=== PATIENT | male | born 1950 | race Caucasian/White ===

== ENCOUNTER 2019-01-26 14:57 | Emergency (ER) | payer OTHER ==
[2019-01-26 15:45] LABS: Absolute Lymphocytes (CBC) 1.2 K/uL (0.7-4.9); Basophils % 0.6 % (0-1.3); Eosinophils % 0.4 % (0-4.4); Hematocrit 48.8 % (39.6-49.0); Lymphocytes % 18.1 % (15.3-44.8); MPV 10.6 fL (7.6-11.3); RBC Red Blood Cell Count 5.14 M/uL (4.33-5.43)
[2019-01-26 15:48] LABS: Protime INR 0.96
[2019-01-26] MEDS ORDERED: METOCLOPRAMIDE 10 MG/2mL INJ ONE (16:07)
[2019-01-26] MEDS ORDERED: DIPHENHYDRAMINE 50 MG/ML VIAL ONE (16:07)
[2019-01-26] MEDS ORDERED: NA CHLORIDE 0.9% 1,000 ML ONE (16:07)
--- NOTE | 2019-01-26 16:11 | RAD REPORT ---
EXAM DESCRIPTION: RAD - Chest Single View - 01/26/2019 4:00 pm CLINICAL HISTORY: Cough COMPARISON: July 2011 TECHNIQUE: AP portable chest image was obtained 1524 hours . FINDINGS: Lungs are clear. Heart and vasculature are normal. No measurable pleural effusion and no p neumothorax. No acute bony abnormality seen. No acute aortic findings suspected. IMPRESSION: No acute cardiopulmonary process. No significant change from comparison.
[2019-01-26 16:13] LABS: ALT/SGPT 48 U/L (12-78); AST/SGOT 22 U/L (15-37); Alkaline Phosphatase 64 U/L (45-117); BUN Blood Urea Nitrogen 18 mg/dL (7-18); Bicarbonate 27 mmol/L (21-32); Bilirubin Direct 0.1 mg/dL (0-0.2); Bilirubin Total 0.4 mg/dL (0.2-1.0); Glucose Level 143 mg/dL (74-106); Magnesium 2.3 mg/dL (1.8-2.4); NT PRO-BNP 129 pg/mL (<125); Potassium 3.6 mmol/L (3.5-5.1); Protein, Total 7.4 g/dL (6.4-8.2); Sodium Level 139 mmol/L (136-145); Troponin (Emerg Dept Use Only) < 0.02 ng/mL (0.0-0.045)
--- NOTE | 2019-01-26 16:40 | RAD REPORT ---
EXAM DESCRIPTION: CT - Head Brain Wo Cont - 01/26/2019 4:30 pm CLINICAL HISTORY: Aphasia, syncope COMPARISON: CT July 2011 TECHNIQUE: Axial 5 mm thick images of the head were obtained without IV contrast. All CT scans are performed using dose optimization technique as appropriate and may include automated exposure control or mA/KV adjustment according to patient size. FINDINGS: No intracranial hemorrhage, mass, edema or shift of mid-line structures. No acute infarcti on changes seen. No cortical edema or sulcal effacement. Atrophy changes and chronic ischemic changes are mild and similar to comparison. Ventricles are in proportion to any volume loss. Mastoid air cells and visualized portions of the paranasal sinuses are clear. No acute bony findings. IMPRESSION: Negative non-contrast CT head examination for acute finding Mild atrophy and chronic ischemic change not significantly different from comparison.
--- NOTE | 2019-01-26 17:45 | EDPHYS ---
Physician Documentation [facility] Name: Saw Wylie Age: 68 yrs Sex: Male : 1950 Arrival Date: 01/26/2019 Time: 14:59 Bed 8 Private MD: Ranjit Ornelas V ED Physician Suleman Iyer HPI: 01/26 17:45 This 68 yrs old Male presents to ER via Wheelchair with complaints of Passed ma2 Out Prior To Arrival. 17:42 The patient has experienced near-syncope, mild headache, gradual similar to prior ma2 headaches in the pastr . Onset: The symptoms/episode began/occurred gradually. Duration: This was a single episode. Associated signs and symptoms: Pertinent negatives: agitation, blurred vision, diarrhea. Current symptoms: headache, that is mild. The patient has experienced similar episodes in the past. Historical: - Allergies: 15:13 No Known Allergies; sg - PMHx: 15:13 Hypertension; sg - PSHx: 15:13 ID; sg - Immunization history:: Adult Immunizations up to date. - Social history:: Smoking status: Patient/guardian denies using tobacco, Patient/guardian denies using alcohol, street drugs, The patient lives with family. - Ebola Screening: : Patient negative for fever greater than or equal to 101.5 degrees Fahrenheit, and additional compatible Ebola Virus Disease symptoms Patient denies exposure to infectious person Patient denies travel to an Ebola-affected area in the 21 days before illness onset No symptoms or risks identified at this time. - Family history:: not pertinent. ROS: 17:42 Constitutional: Negative for fever, chills, and weight loss. ma2 17:42 All other systems are negative. Exam: 17:42 Constitutional: This is a well developed, well nourished patient who is awake, alert, ma2 and in no acute distress. Chest/axilla: Normal chest wall appearance and motion. Nontender with no deformity. No lesions are appreciated. Cardiovascular: Regular rate and rhythm with a normal S1 and S2. No gallops, murmurs, or rubs. Normal PMI, no JVD. No pulse deficits. Respiratory: Lungs have equal breath sounds bilaterally, clear to auscultation and percussion. No rales, rhonchi or wheezes noted. No increased work of breathing, no retractions or nasal flaring. Abdomen/GI: Soft, non-tender, with normal bowel sounds. No distension or tympany. No guarding or rebound. No evidence of tenderness throughout. MS/ Extremity: Pulses equal, no cyanosis. Neurovascular intact. Full, normal range of motion. Neuro: Awake and alert, GCS 15, oriented to person, place, time, and situation. Cranial nerves II-XII grossly intact. Motor strength 5/5 in all extremities. Sensory grossly intact. Cerebellar exam normal. Normal gait. Vital Signs: 15:11 BP 184 / 89; Pulse 46; Resp 17; Temp 97.9; Pulse Ox 99% on R/A; sg 15:22 BP 190 / 94; Pulse 90; Resp 18; Pulse Ox 100% on R/A; hj 16:06 BP 175 / 102; Pulse 81; Resp 18; Pulse Ox 100% on R/A; hj 16:49 BP 155 / 48; Pulse 85; Resp 18; Pulse Ox 100% on R/A; hj 17:21 BP 154 / 95; Pulse 71; Resp 18; Pulse Ox 98% on R/A; hj MDM: 15:05 Patient medically screened. ma2 17:42 Differential Diagnosis: cardiac arrhythmia, drug effect, emotional response, vasovagal ma2 episode. Data reviewed: vital signs, nurses notes. Counseling: I had a detailed discussion with the patient and/or guardian regarding: the historical points, exam findings, and any diagnostic results supporting the discharge/admit diagnosis, the presence of at least one elevated blood pressure reading (>120/80) during this emergency department visit, the need for outpatient follow up. Response to treatment: the patient's symptoms have resolved after treatment. 01/26 15:09 Order name: Basic Metabolic Panel; Complete Time: 16:53 ma2 01/26 15:09 Order name: CBC with Diff; Complete Time: 16:00 ma2 01/26 15:09 Order name: LFT's; Complete Time: 16:53 ma2 01/26 15:09 Order name: Magnesium; Complete Time: 16:53 ma2 01/26 15:09 Order name: NT PRO-BNP; Complete Time: 16:53 ma2 01/26 15:09 Order name: PT-INR; Complete Time: 16:00 ma2 01/26 15:09 Order name: Troponin (emerg Dept Use Only); Complete Time: 16:53 ma2 01/26 15:09 Order name: XRAY Chest (1 view); Complete Time: 16:53 ma2 01/26 15:09 Order name: EKG; Complete Time: 15:11 ma2 01/26 16:04 Order name: CT Head Brain wo Cont; Complete Time: 16:53 ma2 01/26 17:46 Order name: EKG; Complete Time: 17:47 01/26 15:09 Order name: Cardiac monitoring; Complete Time: 15:27 ma2 01/26 15:09 Order name: EKG - Nurse/Tech; Complete Time: 15:27 ma2 01/26 15:09 Order name: IV Saline Lock; Complete Time: 15:27 ma2 01/26 15:09 Order name: Labs collected and sent; Complete Time: 15:28 ma2 01/26 15:09 Order name: O2 Per Protocol; Complete Time: 15:28 ma2 01/26 15:09 Order name: O2 Sat Monitoring; Complete Time: 15:28 ma2 Administered Medications: 15:50 Drug: NS 0.9% 1000 ml Route: IV; Rate: 1 bolus; Site: left antecubital; hj 16:41 Follow up: IV Status: Completed infusion hj 16:41 Follow up: IV Status: Completed infusion; IV Intake: 1000ml 15:50 Drug: Reglan 20 mg Route: IVP; Site: left antecubital; hj 16:41 Follow up: Response: No adverse reaction hj 15:50 Drug: Benadryl 50 mg Route: IVP; Site: left forearm; hj 16:41 Follow up: Response: No adverse reaction Disposition: 01/26/19 17:44 Discharged to Home. Impression: Essential (primary) hypertension. - Condition is Stable. - Discharge Instructions: Hypertension. - Prescriptions for Reglan 10 mg Oral Tablet - take 1 tablet by ORAL route every 6 hours . take 30 minutes before meals and at bedtime; 100 tablet. - Medication Reconciliation Form, Thank You Letter, Antibiotic Education, Prescription Opioid Use form. - Follow up: Kulwant Rodriguez MD; When: Tomorrow; Reason: Continuance of care. Signatures: Dispatcher [facility]io Huggins RN RN Jason Landin RN RN hj Suleman Iyer MD MD ma2 Corrections: (The following items were deleted from the chart) 18:03 17:44 01/26/2019 17:44 Discharged to Home. Impression: Essential (primary) hj hypertension. Condition is Stable. Forms are Medication Reconciliation Form, Thank You Letter, Antibiotic Education, Prescription Opioid Use. Follow up: Kulwant Rodriguez; When: Tomorrow; Reason: Continuance of care. ma2
--- NOTE | 2019-01-26 17:45 | ER ---
Nurse's Notes [facility] Name: Saw Wylie Age: 68 yrs Sex: Male : 1950 Arrival Date: 01/26/2019 Time: 14:59 Bed 8 Private MD: Ranjit Ornelas V Diagnosis: Essential (primary) hypertension Presentation: 01/26 15:09 Presenting complaint: Patient states: I feel weak like im going to pass out, have been sg on clindamycin for an abscess on my buttocks, finished the antibiotics but unsure if the infection is cleared out. No pain, denies N/V/D/Fever at this time, reports feeling weak like is going to pass out. Transition of care: patient was not received from another setting of care. Onset of symptoms was January 26, 2019. Risk Assessment: Do you want to hurt yourself or someone else? Patient reports no desire to harm self or others. Initial Sepsis Screen: Does the patient meet any 2 criteria? No. Patient's initial sepsis screen is negative. Does the patient have a suspected source of infection? Yes: Skin breakdown/wound. Care prior to arrival: None. 15:09 Method Of Arrival: Wheelchair sg 15:09 Acuity: INDIGO 3 sg Triage Assessment: 15:22 General: Appears in no apparent distress. uncomfortable, Behavior is calm, cooperative, hj appropriate for age. Pain: Denies pain. Historical: - Allergies: 15:13 No Known Allergies; sg - PMHx: 15:13 Hypertension; sg - PSHx: 15:13 ID; sg - Immunization history:: Adult Immunizations up to date. - Social history:: Smoking status: Patient/guardian denies using tobacco, Patient/guardian denies using alcohol, street drugs, The patient lives with family. - Ebola Screening: : Patient negative for fever greater than or equal to 101.5 degrees Fahrenheit, and additional compatible Ebola Virus Disease symptoms Patient denies exposure to infectious person Patient denies travel to an Ebola-affected area in the 21 days before illness onset No symptoms or risks identified at this time. - Family history:: not pertinent. Screenin:21 Abuse screen: Denies threats or abuse. Denies injuries from another. Nutritional hj screening: No deficits noted. Tuberculosis screening: No symptoms or risk factors identified. Fall Risk None identified. Assessment: 15:23 General: Appears in no apparent distress. uncomfortable, Behavior is calm, cooperative, hj appropriate for age. Pain: Denies pain. Neuro: Level of Consciousness is awake, alert, obeys commands, Oriented to person, place, time, situation, Appropriate for age. Cardiovascular: Capillary refill < 3 seconds Patient's skin is warm and dry. Respiratory: Airway is patent Respiratory effort is even, unlabored, Respiratory pattern is regular, symmetrical. GI: No signs and/or symptoms were reported involving the gastrointestinal system. : No signs and/or symptoms were reported regarding the genitourinary system. EENT: No signs and/or symptoms were reported regarding the EENT system. Derm: No signs and/or symptoms reported regarding the dermatologic system. Musculoskeletal: No signs and/or symptoms reported regarding the musculoskeletal system. 16:30 Reassessment: Patient and/or family updated on plan of care and expected duration. Pain hj level reassessed. Patient is alert, oriented x 3, equal unlabored respirations, skin warm/dry/pink. awaiting results and POC;. 17:21 Reassessment: Patient and/or family updated on plan of care and expected duration. Pain hj level reassessed. Patient is alert, oriented x 3, equal unlabored respirations, skin warm/dry/pink. family in room;. Vital Signs: 15:11 BP 184 / 89; Pulse 46; Resp 17; Temp 97.9; Pulse Ox 99% on R/A; sg 15:22 BP 190 / 94; Pulse 90; Resp 18; Pulse Ox 100% on R/A; hj 16:06 BP 175 / 102; Pulse 81; Resp 18; Pulse Ox 100% on R/A; hj 16:49 BP 155 / 48; Pulse 85; Resp 18; Pulse Ox 100% on R/A; hj 17:21 BP 154 / 95; Pulse 71; Resp 18; Pulse Ox 98% on R/A; hj ED Course: 14:59 Patient arrived in ED. rg4 14:59 Ranjit Ornelas MD is Private Physician. rg4 15:05 Suleman Iyer MD is Attending Physician. ma2 15:11 Triage completed. sg 15:11 Arm band placed on. sg 15:21 Jason Landin, KANA is Primary Nurse. hj 15:22 Patient has correct armband on for positive identification. Placed in gown. Bed in low hj position. Call light in reach. Side rails up X 1. Adult w/ patient. 15:23 Initial lab(s) drawn, by me, sent to lab. Inserted saline lock: 20 gauge in left hj antecubital area, using aseptic technique. Blood collected. 15:42 EKG done, by civil cad tech. reviewed by Suleman Iyer MD. at1 16:00 XRAY Chest (1 view) In Process Unspecified. EDMS 16:30 CT Head Brain wo Cont In Process Unspecified. EDMS 16:30 CT completed. Patient tolerated procedure well. Patient moved to CT. Patient moved back in from CT. 17:44 Kulwant Rodriguez MD is Referral Physician. ma2 18:02 No provider procedures requiring assistance completed. IV discontinued, intact, hj bleeding controlled, No redness/swelling at site. Pressure dressing applied. Administered Medications: 15:50 Drug: NS 0.9% 1000 ml Route: IV; Rate: 1 bolus; Site: left antecubital; hj 16:41 Follow up: IV Status: Completed infusion hj 16:41 Follow up: IV Status: Completed infusion; IV Intake: 1000ml hj 15:50 Drug: Reglan 20 mg Route: IVP; Site: left antecubital; hj 16:41 Follow up: Response: No adverse reaction hj 15:50 Drug: Benadryl 50 mg Route: IVP; Site: left forearm; hj 16:41 Follow up: Response: No adverse reaction hj Intake: 16:41 IV: 1000ml; Total: 1000ml. Outcome: 17:44 Discharge ordered by . ma2 18:02 Discharged to home ambulatory, with family. hj 18:02 Condition: stable 18:02 Discharge instructions given to patient, family, Instructed on discharge instructions, follow up and referral plans. medication usage, Demonstrated understanding of instructions, follow-up care, medications, Prescriptions given X 1. 18:03 Patient left the ED. Signatures: Dispatcher [employer] Lucio Mcdowell, RN RN Naz Archuleta, research and development tester EKG Tat1 Jason Landin RN RN hj Garcia, Rubi rg4 Tavo Conteh Mohammad, MD MD ne2
--- NOTE | 2019-01-27 06:54 | EKG ---
Test Date: 2019-01-26 Test Time: 17:53:05 Safety Equipment Testing Specialist: BRENDA MEASUREMENT RESULTS: Intervals: Rate: 83 CT: 172 QRSD: 70 QT: 390 QTc: 458 [place]: P: 11 CT: 172 QRS: 21 T: 12 INTERPRETIVE STATEMENTS: Sinus rhythm with frequent premature ventricular complexes in a pattern of bigeminy Nonspecific T wave abnormality Abnormal ECG Compared to ECG 01/26/2019 15:12:38 Ventricular premature complex(es) now present T-wave abnormality now present Sinus arrhythmia no longer present Atrial premature complex(es) no longer present Prolonged QT interval no longer present Electronically Signed On 01-27-19 06:53:07 CDT by Ajay Miller
--- NOTE | 2019-01-27 06:55 | EKG ---
Test Date: 2019-01-26 Test Time: 15:12:38 Shot Man: BRENDA MEASUREMENT RESULTS: Intervals: Rate: 88 WI: 146 QRSD: 78 QT: 410 QTc: 496 [place]: P: 12 WI: 146 QRS: 11 T: 24 INTERPRETIVE STATEMENTS: Sinus rhythm with marked sinus arrhythmia with premature atrial complexes in a pattern of bigeminy Prolonged QT Abnormal ECG Compared to ECG 08/23/2011 23:38:44 Atrial premature complex(es) now present Prolonged QT interval now present Electronically Signed On 01-27-19 06:53:18 CDT by Ajay Miller
== END 2019-01-26 18:03 | disposition home or self-care (01) ==
LOC: ER 14:57
DX: I10 Essential (primary) hypertension (principal)
CPT/HCPCS: 93005 ×2; 85025; 80048; 36415; 83735; 85610; 80076; 84484; 83880; 70450; 71045; 99284; J2765; J7030

== ENCOUNTER 2019-06-11 19:33 | Observation (INO) | payer OTHER ==
--- OUTSIDE RECORDS SUMMARY | 2019-06-11 19:36 | XMS REPORT | Summary of Care ---
:1950 Author Organization [facility] Address [address] [place] [address] Care Team Providers Name Role Phone Robert Partida MD Primary Care Provider Reason for Visit Reason Comments Refill Request Encounter Details Date Type Department Care Team Description 03/18/2019 Refill [facility] Robert Partida MD Refill Request - [place] [address] [facility] [address] [place] [address] [place] [address] Allergies Active Allergy Reactions Severity Noted Date Comments Niacin Other - See comments 07/29/2018 "It's like you set my hair on fire" documented as of this encounter (statuses as of 03/18/2019) Medications Medication Sig Dispensed Refills Start Date End Date Status cloniDINE 0.2 mg Take 0.2 mg 0 Active tabletIndications: by mouth as Bradycardia, needed Essential (1/2tab). hypertension, Hyperlipidemia with target LDL less than 100, Palpitations cloniDINE 0.1 mg Take 1 tablet 90 tablet 1 12/15/2017 Active tablet by mouth 3 (three) times daily as needed (htn). ATORVASTATIN 20 mg TAKE 1 TABLET 30 tablet 1 06/09/2018 Active tablet BY MOUTH DAILY BENAZEPRIL 20 mg TAKE 1 TABLET 30 tablet 5 07/24/2018 Active tablet BY MOUTH DAILY paroxetine 10 mg TK 1 T PO QHS 0 08/13/2018 Active tablet metoprolol succinate Take 1 tablet 180 tablet 1 08/18/2018 Active XL 25 mg 24 hr by mouth 2 tabletIndications: (two) times Essential daily. hypertension traMADOL 50 mg Take 1 tablet 40 tablet 1 08/18/2018 Active tabletIndications: by mouth Nonintractable every 6 (six) headache, hours as unspecified needed for chronicity pattern, Pain (scale unspecified headache 4-6). type ALPRAZOLAM 0.25 mg TAKE 1 TABLET 180 tablet 0 10/07/2018 Active tabletIndications: BY MOUTH Anxiety TWICE DAILY traMADOL 50 mg Take 1 tablet 20 tablet 0 01/06/2019 Active tabletIndications: by mouth Abscess, Abscess, every 6 (six) gluteal cleft hours as needed for Pain (scale 7-10). clopidogrel 75 mg Take 1 tablet 30 tablet 6 01/18/2019 Active tablet by mouth daily. HYDRALAZINE 50 mg TAKE 1 TABLET 270 tablet 0 02/17/2019 Active tabletIndications: BY MOUTH Essential THREE TIMES hypertension DAILY ATORVASTATIN 20 mg TAKE 1 TABLET 90 tablet 0 03/18/2019 Active tablet BY MOUTH DAILY. LEVOTHYROXINE 75 mcg TAKE 1 TABLET 90 tablet 0 03/18/2019 Active tablet BY MOUTH EVERY MORNING. ATORVASTATIN 20 mg TAKE 1 TABLET 90 tablet 0 12/18/2018 Discontinued tablet BY MOUTH 9 DAILY levothyroxine 75 mcg TAKE 1 TABLET 90 tablet 0 12/18/2018 Discontinued tablet BY MOUTH 9 EVERY MORNING documented as of this encounter (statuses as of 03/18/2019) Active Problems Problem Noted Date Palpitations 03/02/2018 Essential hypertension 07/03/2015 Hyperlipidemia with target LDL less than 100 07/03/2015 Hypothyroidism 07/03/2015 Anxiety 07/03/2015 documented as of this encounter (statuses as of 03/18/2019) Social History Tobacco Use Types Packs/Day Years Used Date Never Smoker Smokeless Tobacco: Never Used Alcohol Use Drinks/Week oz/Week Comments Yes socially Sex Assigned at Date Recorded Not on file Job Start Date Occupation Industry Not on file Not on file Not on file Travel History Travel Start Travel End No recent travel history available. documented as of this encounter Last Filed Vital Signs Not on filedocumented in this encounter Plan of Treatment Health Maintenance Due Date Last Done Comments HEPATITIS C (HCV) SCREEN 1950 DTaP,Tdap,and Td Vaccines (1 - Tdap) 10/11/1970 COLONOSCOPY 10/11/2001 Zoster Recombinant Vaccine (SHINGRIX) (1 of 2) 10/11/2001 Medicare Wellness Visit 10/11/2016 PNEUMOCOCCAL VACCINES 65+ (1 of 2 - PCV13) 10/11/2016 INFLUENZA VACCINE (#1) 2019 documented as of this encounter Results Not on filedocumented in this encounter Insurance Payer Benefit Plan / Subscriber ID Effective Phone Address Type Group Dates MEDICARE MEDICARE PART A xxxxxxxxxxx 2016-Pres [phone] ent [id number] [place] [phone] FORMERLY [facility] [id number] 2016-Pres [employer] ent documented as of this encounter
--- OUTSIDE RECORDS SUMMARY | 2019-06-11 19:36 | XMS REPORT ---
:1950 Author Organization [facility] Address [address] [place] [address] Dr. Ramirez [address] [place] [id number] Care Team Providers Name Role Phone Unavailable Unavailable Unavailable Problems This patient has no known problems. Allergies, Adverse Reactions, Alerts This patient has no known allergies or adverse reactions. Medications This patient has no known medications.
--- NOTE | 2019-06-11 20:03 | RAD REPORT ---
EXAM DESCRIPTION: [place] Single View06/11/2019 7:56 pm CLINICAL HISTORY: cva COMPARISON: January 2019 FINDINGS: The lungs appear clear of acute infiltrate. The heart is normal size IMPRESSION: No acute abnormalities displayed
[2019-06-11 20:07] LABS: Basophils % 0.8 % (0-1.3); Hematocrit 49.3 % (39.6-49.0); MPV 9.6 fL (7.6-11.3); RBC Red Blood Cell Count 5.18 M/uL (4.33-5.43)
[2019-06-11 20:08] LABS: Protime INR 1.26
--- NOTE | 2019-06-11 20:09 | RAD REPORT ---
EXAM DESCRIPTION: CT - Ct Stroke Brain Wo Cont - 06/11/2019 8:02 pm CLINICAL HISTORY: tia COMPARISON: January, TECHNIQUE: Computed axial tomography of the head was obtained. All CT scans are performed using dose optimization technique as appropriate and may include automated exposure control or mA/KV adjustment according to patient size. FINDINGS: An intracranial bleed is not seen . The ventricles are normal in caliber. No extra-axial fluid collection is noted. Mild low-density within periventricular, deep and subcortical white matter likely ischemic changes s econdary to small vessel disease Fluid within the sinuses/ mastoids is not seen. IMPRESSION: No acute intracranial abnormality is seen. If patient's symptoms persist MRI of the bra in would be recommended. Dr Marx of the emergency room was notified at 8:03 p.m. June 11, 2019
[2019-06-11 20:21] LABS: CKMB Creatine Kinase MB 2.2 ng/mL (0.3-3.6); Potassium 3.6 mmol/L (3.5-5.1)
--- NOTE | 2019-06-11 21:21 | ER ---
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 Reports he took his BP and it was 220/120 and he was concerned because he had a stroke in 2010 with the same symptoms. VAN negative. Transition of care: patient was not received from another setting of care. No acute neurological deficit is noted. Pre-hospital glucose is not applicable to this patient. Onset of symptoms was June 11, 2019 at 18:30. Initial Sepsis Screen: Does the patient meet any 2 criteria? No. Patient's initial sepsis screen is negative. Does the patient have a suspected source of infection? No. Patient's initial sepsis screen is negative. Care prior to arrival: None. 19:38 Method Of Arrival: Wheelchair aa1 19:38 Acuity: INDIGO 2 aa1 20:18 Risk Assessment: Do you want to hurt yourself or someone else? Patient reports no ak1 desire to harm self or others. Triage Assessment: 19:38 The onset of the patients symptoms was June 11, 2019 at 18:30. General: Appears in aa1 no apparent distress. comfortable, Behavior is calm, cooperative, appropriate for age. Pain: Denies pain. Neuro: Level of Consciousness is awake, alert, obeys commands, Oriented to person, place, time, situation, Construction Technology Instructor are equal bilaterally Moves all extremities. Full function Speech is normal, Facial symmetry appears normal. 20:16 Neuro: Reports dizziness, headache about 1 hours SALES AND [employer]PERATIONS TRAINEE. ak1 Stroke Activation: Symptom onset < 3 hours Physician: Stroke Attending; Name: n/a; Notified At: ; Arrived At: Physician: Chief Stroke Resident; Name: n/a; Notified At: ; Arrived At: Physician: Stroke Resident; Name: n/a; Notified At: ; Arrived At: Physician: ED Attending; Name: Araseli; Notified At: 19:52; Arrived At: 19:42 Physician: ED Resident; Name: n/a; Notified At: ; Arrived At: Historical: - Allergies: 20:18 No Known Allergies; aa1 - Home Meds: 20:18 levothyroxine 75 mcg tab 1 tab once daily [Active]; clonidine HCl 0.1 mg Oral tab 0.5 aa1 tab 3 times per day [Active]; hydrochlorothiazide 12.5 mg Oral tab as needed [Active]; hydralazine 25 mg Oral tab three times a day [Active]; gabapentin 100 mg oral cap daily [Active]; benazepril 40 mg oral tab 1 tab once daily [Active]; sotalol 80 mg Oral tab 0.5 tab 2 times per day [Active]; Xarelto 20 mg oral tab 1 tab once daily [Active]; rosuvastatin 5 mg oral tab 1 tab once daily [Active]; aspirin 81 mg Oral TbEC 1 tab once daily [Active]; alprazolam 0.25 mg Oral tab 1 tab nightly [Active]; - PMHx: 20:18 Hypertension; CVA; Atrial Fib; High Cholesterol; Hypothyroidism; aa1 - PSHx: 20:18 None; aa1 - Immunization history:: Flu vaccine is not up to date. Patient has never been vaccinated. - Social history:: Smoking status: Patient/guardian denies using tobacco, never smoked. - Ebola Screening: : No symptoms or risks identified at this time. Screenin:55 The patient has not been NPO before screening. The patient is alert, able to follow ak1 commands. The patient does not exhibit slurred or garbled speech The patient is not exhibiting difficulty speaking. The patient does not exhibit difficulty understanding words. The patient is able to swallow own secretions with no drooling or need for suction. Patient tolerated one teaspoon of water. No drooling, immediate coughing, gurgling, or clearing of the throat was noted. The patient tolerated 90mL of water. No drooling, immediate coughing, gurgling, or clearing of the throat was noted. The patient passed the bedside swallow screening. Oral medications may be given as ordered. Contact Physician for further diet orders. 20:16 Abuse screen: Denies threats or abuse. Denies injuries from another. Nutritional ak1 screening: No deficits noted. Tuberculosis screening: No symptoms or risk factors identified. Fall Risk None identified. Gait- Normal/Bed Rest/Wheelchair (0 pts). Assessment: 19:55 The patient has not been NPO before screening. pt was eating dinner when he had a spike ak1 in blood pressure and headache at home The patient is alert, and able to follow commands. The patient does not exhibit slurred or garbled speech. The patient is not exhibiting difficulty speaking. The patient does not exhibit difficulty understanding words. The patient is able to swallow own secretions with no drooling or need for suction. Patient tolerated one teaspoon of water. No drooling, immediate coughing, gurgling, or clearing of the throat was noted. The patient tolerated 90mL of water. No drooling, immediate coughing, gurgling, or clearing of the throat was noted. The patient passed the bedside swallow screening. Oral medications may be given as ordered. Contact Physician for further diet orders. Provider notified of bedside swallow screening results: Huber Marx MD. 19:55 General: Appears in no apparent distress. comfortable, Behavior is calm, cooperative. ak1 19:55 Neuro: Level of Consciousness is awake, alert, obeys commands, Oriented to person, ak1 place, time, situation, Construction Technology Instructor are equal bilaterally Moves all extremities. Full function Gait is steady, Speech is normal, Facial symmetry appears normal. Cardiovascular: Heart tones S1 S2 present Rhythm is sinus rhythm. Respiratory: Airway is patent Respiratory effort is even, unlabored, Respiratory pattern is regular. GI: No signs and/or symptoms were reported involving the gastrointestinal system. : No signs and/or symptoms were reported regarding the genitourinary system. EENT: No signs and/or symptoms were reported regarding the EENT system. Derm: No signs and/or symptoms reported regarding the dermatologic system. Musculoskeletal: No signs and/or symptoms reported regarding the musculoskeletal system. pt ambulated from wheelchair to ER stretcher. 19:55 T-PA (Activase) Screening: Contraindications: Is the patient on Aspirin, Heparin, or ak1 Warfarin: Yes. 20:17 VAN Scoring: Arm Drift: Patients demonstrates NO arm weakness. Patient is VAN Negative. ak1 21:43 Reassessment: Reassessment: No changes from previously documented assessment. Patient ak1 and/or family updated on plan of care and expected duration. Pain level reassessed. Patient is alert, oriented x 3, equal unlabored respirations, skin warm/dry/pink. pt informed of wait for Dr. Paredes's occupational therapy assistant physician Dr. Powell to contact Dr. Marx about admission. 22:30 Reassessment: pt SisterTatiana and brother in law, Chris Arteaga can be reached at ak1 [phone]. 22:36 Reassessment: hospitalist at bedside. ak1 Vital Signs: 19:40 BP 194 / 99; Pulse 72; Resp 18; Temp 98.6(O); Pulse Ox 99% on R/A; Weight 82.55 kg (R); aa1 Height 5 ft. 5 in. (165.10 cm) (R); Pain 0/10; 20:07 BP 164 / 85; Pulse 61; Resp 18; Pulse Ox 98% on R/A; ak1 20:33 BP 137 / 81; Pulse 58; Resp 15; Pulse Ox 97% on R/A; ak1 21:44 BP 137 / 78; Pulse 54; Resp 16; Pulse Ox 98% on R/A; Pain 0/10; ak1 23:09 BP 142 / 86; Pulse 48; Resp 12; Temp 98.4; Pulse Ox 97% on R/A; ak1 19:40 Body Mass Index 30.29 (82.55 kg, 165.10 cm) aa1 NIH Stroke Scale Scores: 20:17 NIHSS Score: 0 ak1 ED Course: 19:36 Patient arrived in ED. es 19:37 Ranjit Ornelas MD is Private Physician. es 19:37 Arm band placed on right wrist. 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 19:43 Huber Marx MD is Attending Physician. tw4 19:52 Yenifer Clemens, KANA is Primary Nurse. ak1 19:52 Inserted saline lock: 18 gauge in left antecubital area, using aseptic technique. ak1 ,using aseptic technique. placed by Nguyễn Desir Blood collected. 19:55 Stroke CXR 1 View In Process Unspecified. EDMS 19:55 Patient has correct armband on for positive identification. Placed in gown. Bed in low ak1 position. Call light in reach. Side rails up X2. Adult w/ patient. retail sales consultant on. Pulse ox on. NIBP on. 20:04 CT Stroke Brain w/o Contrast In Process Unspecified. EDMS 20:05 Triage completed. aa1 21:19 Gregorio Carbajal is Hospitalizing Provider. tw4 23:06 No provider procedures requiring assistance completed. Patient admitted, IV remains in ak1 place. Administered Medications: No medications were administered Point of Care Testing: Blood Glucose: 19:40 Blood Glucose: 172 mg/dL; aa1 Ranges: Outcome: 21:20 Decision to Hospitalize by Provider. tw4 23:07 Admitted to Med/surg accompanied by tech, via wheelchair, room 204, with chart. ak1 23:07 Condition: stable 23:07 Instructed on the need for admit. 23:30 Patient left the ED. ak1 NIH Stroke Scale - NIH Stroke Score Date: 06/11/2019 Time: 20:17 Total Score = 0 1a. Level of Consciousness (LOC) - 0(Alert) 1b. Level of Consciousness (LOC) (Year \T\ Age) - 0(Both) 1c. LOC Commands (Open \T\ Closes Eyes/Lead Ios Developer) - 0(Both) 2. Best Gaze (Lateral Gaze Paresis) - 0(Normal) 3. Visual Field Loss - 0(No visual loss) 4. Facial Palsy - 0(Normal) 5a. Left Arm: Motor (10-second hold) - 0(No drift) 5b. Right Arm: Motor (10-second hold) - 0(No drift) 6a. Left Leg: Motor (5-second hold - always test supine) - 0(No drift) 6b. Right Leg: Motor (5-second hold - always test supine) - 0(No drift) 7. Limb Ataxia (finger/nose \T\ heel/rice - test with eyes open) - 0(Absent) 8. Sensory Loss (pinprick arms/legs/face) - 0(Normal) 9. Best Language: Aphasia (description/naming/reading) - 0(No aphasia) 10. Dysarthria (speech clarity - read or repeat words) - 0(Normal) 11. Extinction and Inattention (visual/tactile/auditory/spatial/personal) - 0(No abnormality) Initials: ak1 Signatures: Dispatcher [employer] EDGricelda Reyes RN RN aa1 Hafsa Gabriel Amber RN RN ak1 Huber Marx MD MD tw4 Corrections: (The following items were deleted from the chart) 20:09 20:07 The patient has not been NPO before screening. pt was eating dinner when ak1 he had a spike in blood pressure and headache at home The patient is alert, and able to follow commands. The patient does not exhibit slurred or garbled speech. The patient is not exhibiting difficulty speaking. The patient does not exhibit difficulty understanding words. The patient is able to swallow own secretions with no drooling or need for suction. Patient tolerated one teaspoon of water. No drooling, immediate coughing, gurgling, or clearing of the throat was noted. The patient tolerated 90mL of water. No drooling, immediate coughing, gurgling, or clearing of the throat was noted. The patient passed the bedside swallow screening. Oral medications may be given as ordered. Contact Physician for further diet orders. Provider notified of bedside swallow screening results: Huber Marx MD ak1
--- NOTE | 2019-06-11 21:21 | EDPHYS ---
Physician Documentation [facility] Name: Saw Wylie Age: 68 yrs Sex: Male : 1950 Arrival Date: 06/11/2019 Time: 19:36 Bed 4 Private MD: Ranjit Ornelas V ED Physician Huber Marx HPI: 06/12 06:51 This 68 yrs old Male presents to ER via Wheelchair with complaints of S/S of tw4 Possible Stroke. 06:51 The patient's problem is reported as dysphasia, expressive aphasia. Onset: The tw4 symptoms/episode began/occurred today. Onset: The symptoms/episode began/occurred. Duration: This was a single incident. Context: the episode(s) was witnessed, by family, brother, symptoms became apparent occurred at home. The symptoms are alleviated by nothing. The symptoms are aggravated by nothing. Severity of symptoms: At their worst the symptoms were moderate in the emergency department the symptoms have improved. Patient's baseline: Neuro: alert and fully oriented, Motor: no deficits, Ambulation: walks without assistance, Speech: normal. The patient has experienced a previous episode, and the symptoms today are exactly the same. Historical: - Allergies: 06/11 20:18 No Known Allergies; aa1 - Home Meds: 20:18 levothyroxine 75 mcg tab 1 tab once daily [Active]; clonidine HCl 0.1 mg Oral tab 0.5 aa1 tab 3 times per day [Active]; hydrochlorothiazide 12.5 mg Oral tab as needed [Active]; hydralazine 25 mg Oral tab three times a day [Active]; gabapentin 100 mg oral cap daily [Active]; benazepril 40 mg oral tab 1 tab once daily [Active]; sotalol 80 mg Oral tab 0.5 tab 2 times per day [Active]; Xarelto 20 mg oral tab 1 tab once daily [Active]; rosuvastatin 5 mg oral tab 1 tab once daily [Active]; aspirin 81 mg Oral TbEC 1 tab once daily [Active]; alprazolam 0.25 mg Oral tab 1 tab nightly [Active]; - PMHx: 20:18 Hypertension; CVA; Atrial Fib; High Cholesterol; Hypothyroidism; aa1 - PSHx: 20:18 None; aa1 - Immunization history:: Flu vaccine is not up to date. Patient has never been vaccinated. - Social history:: Smoking status: Patient/guardian denies using tobacco, never smoked. - Ebola Screening: : No symptoms or risks identified at this time. ROS: 06/12 06:51 Constitutional: Negative for fever, chills, and weight loss, Eyes: Negative for injury, tw4 pain, redness, and discharge, Cardiovascular: Negative for chest pain, palpitations, and edema, Respiratory: Negative for shortness of breath, cough, wheezing, and pleuritic chest pain, Abdomen/GI: Negative for abdominal pain, nausea, vomiting, diarrhea, and constipation, Back: Negative for injury and pain, MS/Extremity: Negative for injury and deformity. Neuro: Positive for speech changes. Exam: 06:51 Radiologist reports: negative tw4 06:51 Constitutional: This is a well developed, well nourished patient who is awake, alert, and in no acute distress. Head/Face: Normocephalic, atraumatic. Chest/axilla: Normal chest wall appearance and motion. Nontender with no deformity. No lesions are appreciated. Cardiovascular: Regular rate and rhythm with a normal S1 and S2. No gallops, murmurs, or rubs. Normal PMI, no JVD. No pulse deficits. Respiratory: Lungs have equal breath sounds bilaterally, clear to auscultation and percussion. No rales, rhonchi or wheezes noted. No increased work of breathing, no retractions or nasal flaring. Abdomen/GI: Soft, non-tender, with normal bowel sounds. No distension or tympany. No guarding or rebound. No evidence of tenderness throughout. Back: No spinal tenderness. No costovertebral tenderness. Full range of motion. MS/ Extremity: Pulses equal, no cyanosis. Neurovascular intact. Full, normal range of motion. Neuro: Awake and alert, GCS 15, oriented to person, place, time, and situation. Cranial nerves II-XII grossly intact. Motor strength 5/5 in all extremities. Sensory grossly intact. Cerebellar exam normal. Normal gait. Vital Signs: 06/11 19:40 BP 194 / 99; Pulse 72; Resp 18; Temp 98.6(O); Pulse Ox 99% on R/A; Weight 82.55 kg (R); aa1 Height 5 ft. 5 in. (165.10 cm) (R); Pain 0/10; 20:07 BP 164 / 85; Pulse 61; Resp 18; Pulse Ox 98% on R/A; ak1 20:33 BP 137 / 81; Pulse 58; Resp 15; Pulse Ox 97% on R/A; ak1 21:44 BP 137 / 78; Pulse 54; Resp 16; Pulse Ox 98% on R/A; Pain 0/10; ak1 23:09 BP 142 / 86; Pulse 48; Resp 12; Temp 98.4; Pulse Ox 97% on R/A; ak1 19:40 Body Mass Index 30.29 (82.55 kg, 165.10 cm) aa1 NIH Stroke Scale Scores: 20:17 NIHSS Score: 0 ak1 MDM: 19:43 Patient medically screened. tw4 06/12 06:51 Differential diagnosis: CVA, TIA, Dementia, paralysis, metabolic disorder, drug tw4 effects. Data reviewed: vital signs, nurses notes. Data interpreted: Pulse oximetry: Interpretation: normal. Test interpretation: by ED physician or midlevel provider: ECG. Counseling: I had a detailed discussion with the patient and/or guardian regarding: the historical points, exam findings, and any diagnostic results supporting the discharge/admit diagnosis, lab results, radiology results. Physician consultation: Gregorio Carbajal regarding admission, patient's condition, and will see patient in ED. 06/11 19:43 Order name: Ckmb; Complete Time: 21:16 tw4 06/11 21:16 Interpretation: Within normal limits: CKMB 2.2. tw4 06/11 19:43 Order name: CPK; Complete Time: 21:16 tw4 06/11 21:16 Interpretation: Within normal limits: CPK 89. tw06/11 19:43 Order name: Basic Metabolic Panel; Complete Time: 21:16 tw4 06/11 21:17 Interpretation: Normal except: GLUC 176; GFR 59. tw06/11 19:43 Order name: CBC with Diff; Complete Time: 21:16 tw4 06/11 21:17 Interpretation: Normal except: HCT 49.3. tw4 06/11 19:43 Order name: Protime (+inr); Complete Time: 21:16 tw4 06/11 21:17 Interpretation: Within normal limits: PT 14.7. tw4 06/11 19:43 Order name: Ptt, Activated; Complete Time: 21:16 tw4 06/11 21:17 Interpretation: Normal except: PTT 40.2. tw4 06/11 19:43 Order name: Call for Old Records tw 06/11 19:43 Order name: CT Stroke Brain w/o Contrast; Complete Time: 21:16 tw4 06/11 21:16 Interpretation: No acute disease. tw 06/11 19:43 Order name: Stroke CXR 1 View; Complete Time: 21:16 tw4 06/11 21:16 Interpretation: No acute disease. tw4 06/11 19:43 Order name: EKG; Complete Time: 19:44 tw4 06/11 19:43 Order name: Accucheck; Complete Time: 19:52 tw 06/11 19:43 Order name: Cardiac monitoring; Complete Time: 19:52 tw4 06/11 19:43 Order name: EKG - Nurse/Tech; Complete Time: 19:52 [facility] 06/11 19:59 Order name: Glucose, Ancillary Testing; Complete Time: 21:16 EDVT 06/11 21:16 Interpretation: Normal except: GLUC,ANCIL 172. 4 06/11 19:43 Order name: IV Saline Lock; Complete Time: 19:52 4 06/11 19:43 Order name: Labs collected and sent; Complete Time: 19:52 tw4 06/11 19:43 Order name: NPO; Complete Time: 19:52 [facility] 06/11 19:43 Order name: O2 Per Protocol; Complete Time: 19:52 [facility] 06/11 19:43 Order name: O2 Sat Monitoring; Complete Time: 19:52 [facility] 06/11 19:43 Order name: Stroke Swallow Screen; Complete Time: 19:55 tw4 Administered Medications: No medications were administered Point of Care Testing: Blood Glucose: 06/11 19:40 Blood Glucose: 172 mg/dL; aa1 Ranges: Critical Glucose Levels:Adult <50 mg/dl or >400 mg/dl <40 mg/dl or >180 mg/dl Disposition: 06/11/19 21:20 Hospitalization ordered by Gregorio Carbajal for Observation. Preliminary diagnosis is transiet ischemic attack. - Bed requested for Telemetry/MedSurg (observation). - Status is Observation. ak1 - Condition is Stable. - Problem is new. - Symptoms have improved. UTI on Admission? No NIH Stroke Scale - NIH Stroke Score Date: 06/11/2019 Time: 20:17 Total Score = 0 1a. Level of Consciousness (LOC) - 0(Alert) 1b. Level of Consciousness (LOC) (Year \T\ Age) - 0(Both) 1c. LOC Commands (Open \T\ Closes Eyes/Ui Ux Developer) - 0(Both) 2. Best Gaze (Lateral Gaze Paresis) - 0(Normal) 3. Visual Field Loss - 0(No visual loss) 4. Facial Palsy - 0(Normal) 5a. Left Arm: Motor (10-second hold) - 0(No drift) 5b. Right Arm: Motor (10-second hold) - 0(No drift) 6a. Left Leg: Motor (5-second hold - always test supine) - 0(No drift) 6b. Right Leg: Motor (5-second hold - always test supine) - 0(No drift) 7. Limb Ataxia (finger/nose \T\ heel/rice - test with eyes open) - 0(Absent) 8. Sensory Loss (pinprick arms/legs/face) - 0(Normal) 9. Best Language: Aphasia (description/naming/reading) - 0(No aphasia) 10. Dysarthria (speech clarity - read or repeat words) - 0(Normal) 11. Extinction and Inattention (visual/tactile/auditory/spatial/personal) - 0(No abnormality) Initials: ak1 Signatures: Dispatcher [employer] EDGricelda Reyes RN RN aa1 Yenifer Clemens RN RN ak1 Jenifer Argueta RN RN cg Wadley, Terrence, MD MD tw4 Corrections: (The following items were deleted from the chart) 23:04 21:20 Hospitalization Ordered by Gregorio Carbajal for Observation. Preliminary cg diagnosis is transiet ischemic attack. Bed requested for Telemetry/MedSurg (observation). Status is Observation. Condition is Stable. Problem is new. Symptoms have improved. UTI on Admission? No. tw4 23:30 23:04 06/11/2019 21:20 Hospitalization Ordered by Gregorio Carbajal for ak1 Observation. Preliminary diagnosis is transiet ischemic attack. Bed requested for Telemetry/MedSurg (observation). Status is Observation. Condition is Stable. Problem is new. Symptoms have improved. UTI on Admission? No. cg
--- NOTE | 2019-06-11 22:48 | P.HP ---
Certification for Inpatient Patient admitted to: Observation With expected LOS: <2 Midnights Practitioner: I am a practitioner with admitting privileges, knowledge of patient current condition, hospital course, and medical plan of care. Services: Services provided to patient in accordance with Admission requirements found in Title 42 Section 412.3 of the Code of Federal Regulations Patient History Date of Service: 06/12/19 Reason for admission: Dizziness History of Present Illness: 68-year-old gentleman with a history of atrial fibrillation on Xarelto, hypertension, history of CVA in the past presented to the emergency department with a complaint of transient vertigo, nausea and transient inability to speak. Patient stated he took his blood pressure and systolic was as high as 220. He was concerned for another stroke. He then took a dose of clonidine, hydralazine and benazepril and drove himself to the emergency department to be evaluated. His systolic blood pressure was [address] head is negative for any acute intercranial changes. His symptoms resolved prior to arrival to the ED. He seems to associate these symptoms with severely elevated blood pressure. He was also complaining of intermittent chest. EKG in the ED demonstrated atrial fibrillation, no ischemic changes. Patient is placed under observation for further TIA and chest pain workup. Allergies metoclopramide [From Reglan] Adverse Reaction (Severe, Verified 06/12/19 00:15) facial numbness Home Medications: ALPRAZolam [Xanax*] 0.25 mg PO BEDTIME 06/11/19 Benazepril HCl 40 mg PO BEDTIME 06/11/19 Gabapentin 100 mg PO BEDTIME 06/11/19 Hydralazine HCl 50 mg PO TID 06/11/19 Levothyroxine Sodium 75 mcg PO DAILY 06/11/19 Rivaroxaban [Xarelto] 20 mg PO DAILY 06/11/19 cloNIDine HCl [Clonidine HCl] 0.2 mg PO TID 06/11/19 Aspirin [Aspirin EC 81 MG] 81 mg PO DAILY 06/12/19 Rosuvastatin Calcium 5 mg PO BEDTIME 06/12/19 Sotalol HCl [Betapace*] 80 mg PO BID 06/12/19 - Past Medical/Surgical History -: Hypertension -: History of CVA -: Atrial fibrillation -: None - Family History Family History: Reviewed- Non-Contributory - Family History Mother -: Hypertension, Cancer Father -: Heart disease, Hypertension Brother -: Cancer - Social History Smoking Status: Never smoker Alcohol use: No CD- Drugs: No Review of Systems Other: General: No fever, no malaise, no unintentional weight loss. Eyes: No eye discharge, Respiratory: No cough, no shortness of breath. CVS: No chest pain, no palpitation, no lightheadedness. GI: No abdominal pain, no nausea no vomit, no constipation, no diarrhea. Genitourinary: No dysuria, no urinary frequency, no incontinence, no hematuria. Musculoskeletal: No joint pains, or joint swelling, no gait instability. Neurology: No headache, no asymmetric, weakness, no problem with swallowing. Except as documented, all other systems reviewed and negative. Physical Examination - Physical Exam General: Alert, In no apparent distress, Oriented x3 HEENT: Atraumatic, Normocephalic, PERRLA, Mucous membr. moist/pink, EOMI, Sclerae nonicteric Neck: Supple, JVD not distended, No Thyromegaly Respiratory: Clear to auscultation bilaterally, Normal air movement Cardiovascular: No edema, Normal pulses, Regular rate/rhythm, Normal S1 S2 Capillary refill: <2 Seconds Gastrointestinal: Normal bowel sounds, Soft and benign, No tenderness Musculoskeletal: No swelling, No erythema Integumentary: No rashes, No erythema Neurological: Normal speech, Normal strength at 5/5 x4 extr, Normal tone, Cranial nerves 3-12 intact - Studies Laboratory Data (last 24 hrs) 06/11/19 19:50: PT 14.7 H, INR 1.26, APTT 40.2 H 06/11/19 19:50: WBC 6.6, Hgb 16.7, Hct 49.3 H, Plt Count 154 06/11/19 19:50: Sodium 139, Potassium 3.6, BUN 16, Creatinine 1.23, Glucose 176 H Assessment and Plan - Problems (Diagnosis) (1) Malignant hypertension Current Visit: Yes Status: Acute (2) TIA (transient ischemic attack) Current Visit: Yes Status: Acute (3) Paroxysmal atrial fibrillation Current Visit: Yes Status: Acute - Plan Place under observation cuprous chloride helper Trend troponin x3 Aspirin, Lipitor Check lipid profile Continue Xarelto Obtain echocardiogram and carotid Doppler Aggressive blood pressure control. Continue home antihypertensives. Hydralazine p.r.n. for BP spikes. Target SBP 140 to 160. - Advance Directives Does patient have a Living Will: No Does patient have a Durable POA for Healthcare: No
[2019-06-11] MEDS ORDERED: ONDANSETRON 4 MG/2 ML VIAL IV PRN (23:49)
[2019-06-11] MEDS ORDERED: HYDRALAZINE HCL 20 MG/ML VIAL IV PRN (23:49)
[2019-06-12 00:15] VITALS: BMI 30.2
[2019-06-12 00:31] VITALS: O2SAT 99
[2019-06-12 01:07] LABS: Troponin I < 0.02 ng/mL (0.0-0.045)
[2019-06-12 06:33] LABS: Absolute Lymphocytes (CBC) 2.1 K/uL (0.7-4.9); Basophils % 0.6 % (0-1.3); Hematocrit 44.2 % (39.6-49.0); Lymphocytes % 30.2 % (15.3-44.8); RBC Red Blood Cell Count 4.72 M/uL (4.33-5.43)
[2019-06-12 06:37] LABS: BUN Blood Urea Nitrogen 14 mg/dL (7-18); Bicarbonate 31 mmol/L (21-32); Glucose Level 108 mg/dL (74-106); HDL Cholesterol 30 mg/dL (40-60); LDL Cholesterol, Calculated 133 (<130); Magnesium 2.3 mg/dL (1.8-2.4); Phosphorus 2.7 mg/dL (2.5-4.9); Sodium Level 143 mmol/L (136-145); Troponin I < 0.02 ng/mL (0.0-0.045)
--- NOTE | 2019-06-12 08:09 | EKG ---
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
[2019-06-12] MEDS ORDERED: ASPIRIN EC 81 MG TAB PO SCH (09:00)
[2019-06-12 09:23] VITALS: BP 152/83; TEMP 97.8
--- NOTE | 2019-06-12 11:04 | RAD REPORT ---
EXAM DESCRIPTION: RAD - Chest Pa And Lat (2 Views) - 06/12/2019 6:43 am CLINICAL HISTORY: Stroke Chest pain. COMPARISON: Chest Single View dated 06/11/2019; Chest Single View dated 01/26/2019; CHEST SINGLE VIEW dated 08/24/2011; CHEST SINGLE VIEW dated 10/22/2010 FINDINGS: The lungs are clear. The heart is normal in size. No displaced fractures. IMPRESSION: No acute or concerning finding suspected.
--- NOTE | 2019-06-12 12:54 | P.SSS ---
Patient History Date of Service: 06/12/19 Reason for admission: Dizziness History of Present Illness: MR. TORRES IS ONE WITH FLUCUTATIG HTN. HE HAS GONE THROUGH ABOUT 15 HTN MEDS WITH MOST OF THEM HE IS INTOLERANT TO . HE HAS HAD FULL MALDONADO WITH 24 HOUR URINE COLLECTION, RENAL ARTERY EVAL AND STRESS TEST THAT WAS NEGATIVE BY DR. OLIVERA 3 MONTHS AGO. HE COMES WITH HTN TO 180 LATER RAISED TO 210 SYSTOLIC. HE HAD SOME CHEST PAIN HE SAID AND HEADACHES. HE GOT DIZZ WITH IT ALSO. HE IS BACK TO NORMAL NOW. Allergies metoclopramide [From Reglan] Adverse Reaction (Severe, Verified 06/12/19 00:15) facial numbness Home Medications: ALPRAZolam [Xanax*] 0.25 mg PO BEDTIME 06/11/19 Benazepril HCl 40 mg PO BEDTIME 06/11/19 Gabapentin 100 mg PO BEDTIME 06/11/19 Hydralazine HCl 50 mg PO TID 06/11/19 Levothyroxine Sodium 75 mcg PO DAILY 06/11/19 Rivaroxaban [Xarelto] 20 mg PO DAILY 06/11/19 cloNIDine HCl [Clonidine HCl] 0.2 mg PO TID 06/11/19 Aspirin [Aspirin EC 81 MG] 81 mg PO DAILY 06/12/19 Rosuvastatin Calcium 5 mg PO BEDTIME 06/12/19 Sotalol HCl [Betapace*] 80 mg PO BID 06/12/19 - Past Medical/Surgical History Has patient received pneumonia vaccine in the past: No Diabetic: No -: Hypertension -: History of CVA -: Atrial fibrillation -: None - Family History Family History: Reviewed- Non-Contributory - Family History Mother -: Hypertension, Cancer Father -: Heart disease, Hypertension Brother -: Cancer - Social History Smoking Status: Never smoker Alcohol use: No CD- Drugs: No Caffeine use: No Place of Residence: Home Review of Systems 10-point ROS is otherwise unremarkable Physical Examination - Vital Signs Temperature: 97.8 F Blood Pressure: 152/83 Pulse: 52 Respirations: 18 Pulse Ox (%): 97 - Physical Exam General: Alert, In no apparent distress HEENT: Atraumatic, PERRLA, Mucous membr. moist/pink, EOMI, Sclerae nonicteric Neck: Supple, 2+ carotid pulse no bruit, No LAD, Without JVD or thyroid abnormality Respiratory: Clear to auscultation bilaterally, Normal air movement Cardiovascular: Regular rate/rhythm, Normal S1 S2 Gastrointestinal: Normal bowel sounds, No tenderness Musculoskeletal: No tenderness Integumentary: No rashes Neurological: Normal gait, Normal speech, Normal strength at 5/5 x4 extr, Normal tone, Normal affect Lymphatics: No axilla or inguinal lymphadenopathy - Studies Laboratory Data (last 24 hrs) 06/11/19 19:50: PT 14.7 H, INR 1.26, APTT 40.2 H 06/11/19 19:50: WBC 6.6, Hgb 16.7, Hct 49.3 H, Plt Count 154 06/11/19 19:50: Sodium 139, Potassium 3.6, BUN 16, Creatinine 1.23, Glucose 176 H - Diagnosis (Problem(s)) (1) Malignant hypertension Current Visit: Yes Status: Acute Plan: HE HAS IMPROVED. HE HAS TO TAKE MINI DOSES OF MEDICATIONS FOR HIM TO TOLERATE. HE DID SO WITH HALF CLONIDINE, HALF HYDRALAZINE AND BP IS DOWN NOW TO 150. I SUSPECT HE SHOULD DO CATH AND RULE OUT CAD HE MAY HAVE BALANCED MYOVIEW AND STILL HAVE POS CAD. HE IS STABLE FOR DC. I WILL WORK WITH MEDS FOR CONTROL. I MAY HAVE TO GET HIM EDARBI IF HE IS ABLE TO TOLERATE. - Disposition Disposition: ROUTINE DISCHARGE Condition: FAIR
[2019-06-12] MEDS ORDERED: HOME MED 1 EA UNK (Hydralazine Hcl [Hydralazine Hcl] 50 MG) PO SCH (14:00)
[2019-06-12] MEDS ORDERED: cloNIDine HCL 0.1 MG TAB PO SCH (14:00)
[2019-06-12] MEDS ORDERED: RIVAROXABAN 10 MG TABLET PO SCH (17:00)
[2019-06-12] MEDS ORDERED: BENAZEPRIL HCL 40 MG PO SCH (21:00)
[2019-06-12] MEDS ORDERED: HOME MED 1 EA UNK (Rosuvastatin Calcium [Rosuvastatin Calcium] 5 MG) PO SCH (21:00)
[2019-06-12] MEDS ORDERED: GABAPENTIN 100 MG CAP PO SCH (21:00)
[2019-06-12] MEDS ORDERED: ATORVASTATIN 20 MG TAB PO SCH (21:00)
[2019-06-12] MEDS ORDERED: SOTALOL HCL 80 MG TAB PO SCH (21:00)
[2019-06-12] MEDS ORDERED: ALPRAZOLAM 0.25 MG TABLET PO SCH (21:00)
[2019-06-13] MEDS ORDERED: ASPIRIN EC 81 MG TAB PO SCH (09:00)
[2019-06-13] MEDS ORDERED: RIVAROXABAN 20 MG TABLET PO SCH (09:00)
[2019-06-13] MEDS ORDERED: LEVOTHYROXINE SOD 0.075 MG TAB PO SCH (09:00)
== END 2019-06-12 14:15 | disposition home or self-care (01) ==
LOC: ER 19:33 → 2ND 23:14
PROVIDERS: ADMIT Internal Medicine; ATTEND Internal Medicine
DX: I10 Essential (primary) hypertension (principal); I48.91 Unspecified atrial fibrillation; Z79.82 Long term (current) use of aspirin; Z86.73 Personal history of transient ischemic attack (TIA), and cerebral infarction without residual deficits; Z79.01 Long term (current) use of anticoagulants
CPT/HCPCS: 36415; 70450; 71045; 71046; 80048; 80061; 82550; 82553; 82947; 83735; 84100; 84439; 84443; 84484; 85025; 85610; 85730; 93005; 93880; 94760; 97116; 97161; 99285; G0378; J0360

== ENCOUNTER 2019-06-21 06:56 | Day surgery (SDC) | payer OTHER ==
--- OUTSIDE RECORDS SUMMARY | 2019-06-21 06:59 | XMS REPORT ---
:1950 [facility] Address [address] [place] [address] Dr. Ramirez [address] [place] [id number] Care Team Providers Name Role Phone Unavailable Unavailable Unavailable Problems This patient has no known problems. Allergies, Adverse Reactions, Alerts This patient has no known allergies or adverse reactions. Medications This patient has no known medications.
[2019-06-21] MEDS ORDERED: LIDOCAINE 1% MPF 30 ML VIAL ONE (07:07)
[2019-06-21] MEDS ORDERED: HEPA 1000U/500MLS 2,000 UNIT/1,000 ML BAG IV ONE (07:07)
[2019-06-21] MEDS ORDERED: NA CHLORIDE 0.9% 500 ML ONE (07:09)
[2019-06-21] MEDS ORDERED: MIDAZOLAM HCL 2 MG/2 ML INJ ONE (07:29)
[2019-06-21] MEDS ORDERED: ATROPINE SULF 1 MG/10 ML SYR IV ONE (07:30)
[2019-06-21] MEDS ORDERED: FENTANYL CITR 100 MCG/2 ML ONE (07:30)
[2019-06-21] MEDS ORDERED: NA CHLORIDE 0.9% 0 ML ONE (07:30)
--- NOTE | 2019-06-21 09:12 | OP ---
Surgeon: Kulwant Rodriguez MD Mr. Wylie is 68. Family doctor is Dr. Ornelas. Procedures: Left heart catheterization with coronary angiography, bilateral selective carotid angiog jaky, abdominal angiogram with runoffs and interpretation of renal arteries, mesenteric arteries, il iac arteries and common femoral arteries. Procedure Findings: The patient has normal coronary arteries. They are left dominant but that is a normal variant. His carotid arteries are normal. There is no stenosis or ectasias or plaque. His a nima, iliac and femoral arteries are normal. Bilateral renal arteries are normal. The right kidney artery has 2 vessels, 1 is rather small. There are no renal artery stenoses. Mesenteric arteries ap pear normal. So, all normal angiography. Procedure In Detail: The patient was brought to the cardiac petroleum laboratory technician in a fasting state. He is havi ng chest pain, neurological symptoms, anxiety symptoms, very elevated blood pressure and in spite of normal noninvasive tests, we felt that Mr. Wylie had a need for an angiogram of all of these are as in order to be sure he was not suffering from stenosis causing his symptoms. He was brought to [facility] cardiac petroleum laboratory technician in a fasting state, sedated with Versed and fentanyl. Prepared and draped in usua l sterile fashion. Right femoral artery was used. 20 cc of 1% lidocaine were used to anesthetize [facility] tissues around the right femoral artery. The artery was entered using an 18-gauge needle, cannulat ed with a short J-wire and a 4-Setswana sheath was placed into the right common femoral artery. We ang iogramed the left coronary using a JL4, right coronary artery using a JR4. We cannulated both caroti d arteries selectively using a JR4. We entered the left ventricle with an angled pigtail. We took p ressures, but did not inject any dye into the left ventricle. We had several noninvasive tests for t hat, decided to reduce his dye burden by avoiding the LV-gram. We did an aortogram using 60 mL of co ntrast which visualized very nicely all of his aorta and branches and there were no stenosis there. Specifically, the kidney arteries have no stenosis. At the end of the procedure an angiogram was don e through the 4-Setswana sheath to look at the anatomy. We entered the artery, the anatomy was found t o be in good shape and we closed the arteriotomy using Angio-Seal. Complications: None. Estimated Blood Loss: 10 cc. Tobacco Sweeper: Latonya Lozano. HEATHER Voice ID: [id number] Report ID: [id number]
[2019-06-21 10:12] VITALS: TEMP 98
[2019-06-21 11:06] VITALS: BP 138/77; O2SAT 100
== END 2019-06-21 10:45 | disposition home health service (06) ==
LOC: CCL 06:56
PROVIDERS: ATTEND Internal Medicine
DX: I20.9 Angina pectoris, unspecified (principal); I10 Essential (primary) hypertension; I48.0 Paroxysmal atrial fibrillation; Z86.73 Personal history of transient ischemic attack (TIA), and cerebral infarction without residual deficits; Z79.01 Long term (current) use of anticoagulants; Z88.8 Allergy status to other drugs, medicaments and biological substances
CPT/HCPCS: 75625; 93458; 36222; C1893; C1760; G0275; J2250; J3010; J7040; 36200; J0583

== ENCOUNTER 2019-12-14 17:46 | Emergency (ER) | payer OTHER ==
--- OUTSIDE RECORDS SUMMARY | 2019-12-14 17:48 | XMS REPORT | Summary of Care ---
:1950 Author Organization [facility] Outpatient Imaging [facility] Address [facility] [place], [place] [address]- Encounter HQ Encntr_alias(FIN) [id number] Date(s): 08/04/19 - 08/04/19 [facility]patient [facility] [address], [facility] [address] [place] [address]- [phone] Discharge Disposition: Home or Self Care Attending Physician: Jason Zheng MD Referring Physician: Jason Zheng MD Vital Signs No data available for this section Problem List No data available for this section Allergies, Adverse Reactions, Alerts No data available for this section Medications No data available for this section Results No data available for this section Immunizations No data available for this section Procedures No data available for this section Social History Social History Type Response Assessment and Plan No data available for this section
--- OUTSIDE RECORDS SUMMARY | 2019-12-14 17:48 | XMS REPORT | Continuity of Care Document ---
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 Active 07/29/19 [facility] P[facility] STENOSIS, CERVICAL 20 P [place] PRASANNA Palpitations Active 03/02/20 03/18/2019 [facility] H ealth 18 Essential Active 07/03/20 03/18/2019 [facility] Heal hypertension 15 Hyperlipidemia Active 07/03/20 03/18/2019 [facility] Health with target LDL 15 less than 100 Hypothyroidism Active 07/03/20 03/18/2019 [facility] Health 15 Anxiety Active 07/03/20 03/18/2019 [facility] Heal th 15 Medications Medication Details Route Status Patient Ordering Order Source Instructions Provider Date ATORVASTATIN 20 TAKE 1 Oral Active 03/18/20 [facility] mg tablet TABLET BY [facility] MOUTH DAILY. LEVOTHYROXINE 75 TAKE 1 Oral Active 03/18/20 [facility] mcg tablet TABLET BY [facility] MOUTH EVERY MORNING. HYDRALAZINE 50 TAKE 1 Active 02/18/20 [facility] mg tablet TABLET BY [facility] MOUTH THREE TIMES DAILY clopidogrel 75 Take 1 Oral Active 01/19/20 [facility] mg tablet tablet by [facility] mouth daily. traMADOL 50 mg Take 1 Oral Active 01/07/20 [facility] tablet tablet by [facility] mouth every 6 (six) hours as needed for Pain (scale 7-10). ATORVASTATIN 20 TAKE 1 Oral No Longer 12/19/19 [facility] mg tablet TABLET BY Active [facility] MOUTH DAILY levothyroxine 75 TAKE 1 Oral No Longer 12/19/19 [facility] mcg tablet TABLET BY Active [facility] MOUTH EVERY MORNING ALPRAZOLAM 0.25 TAKE 1 Active 10/08/19 [facility] mg tablet TABLET BY [facility] MOUTH TWICE DAILY metoprolol Take 1 Oral Active 08/18/19 [facility] succinate XL 25 tablet by [facility] mg 24 hr tablet mouth 2 (two) times daily. traMADOL 50 mg Take 1 Oral Active 08/18/19 [facility] tablet tablet by [facility] mouth every 6 (six) hours as needed for Pain (scale 4-6). paroxetine 10 mg TK 1 T PO Active 08/13/19 [facility] tablet QHS [facility] BENAZEPRIL 20 mg TAKE 1 Oral Active 07/24/20 [facility] tablet TABLET BY 18 [facility] MOUTH DAILY ATORVASTATIN 20 TAKE 1 Oral Active 06/09/20 [facility] mg tablet TABLET BY 18 [facility] MOUTH DAILY cloniDINE 0.1 mg Take 1 Oral Active 12/16/19 [facility] tablet tablet by [facility] mouth 3 (three) times daily as needed (htn). cloniDINE 0.2 mg Take 0.2 Oral Active [facility] tablet mg by Health mouth as needed (1/2tab). Allergies, Adverse Reactions, Alerts Substance Category Reaction Severity Reaction Status Date Comments S ource type Reported Niacin Other - Propensity Active UTM B See to adverse 9 Healt h comments reactions Immunizations No Data Provided for This Section Results No Data Provided for This Section Pathology Reports No Data Provided for This Section Diagnostic Reports Report Value Date Source Brain wo contrast MRA PROCEDURE INFORMATION: 08/04/2019 ARNOL [facility] Exam: MR Angiogram Head Without Contrast, Arteri es Exam date and time: 08/04/2019 5:55 PM Age: 68 years old Clinical indication: New daily persistent headac he (ndph); Additional info: G44.52 new daily persistent headache (ndph)/g44. 52 new daily persistent headache (ndph) TECHNIQUE: Imaging protocol: MR angiogram head without cont rast. Exam focused on the arteries. 3D rendering: MIP and/or 3D reconstructed images were created by the technologist. COMPARISON: No relevant prior studies available. FINDINGS: Right internal carotid artery: Unremarkable. Int racranial segment is patent with no significant stenosis. No aneurysm. Right anterior cerebral artery: Unremarkable. No occlusion or significant stenosis. No aneurysm. Right middle cerebral artery: Unremarkable. No o cclusion or significant stenosis. No aneurysm. Right posterior cerebral artery: Unremarkable. N o occlusion or significant stenosis. No aneurysm. Right vertebral artery: Unremarkable. No occlusion or significant stenosis. No aneurysm. Left internal carotid artery : Unremarkable. Intracranial segment is patent with no significant stenosis. No aneurysm. Left anterior cerebral artery: Unremarkable. No occlusion or significant stenosis. No aneurysm. Left middle cerebral artery: Unremarkable. No oc clusion or significant stenosis. No aneurysm. Left posterior cerebral artery: Unremarkable. No occlusion or significant stenosis. No aneurysm. Left vertebral artery: Unremarkable. No occlusio n or significant stenosis. No aneurysm. Basilar artery: Unremarkable. No occlusion or si gnificant stenosis. No aneurysm. 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 3D rendering: MIP and/or 3D reconstructed images were created by the technologist. COMPARISON: No relevant prior studies available. FINDINGS: Right common carotid artery: Unremarkable. No st enosis. No dissection or occlusion. Right internal carotid artery: Unremarka ble extracranial segment. No stenosis. No dissection or occlusion. Right external carotid artery: Unremarkable. No stenosis. No dissection or occlusion of the origin. Right vertebral artery: Unremarkable. No stenosis. No dissection or occlusion. Left common carotid artery: Unremarkable. No lexi nosis. No dissection or occlusion. Left internal carotid artery: Unremarkable extra cranial segment. No stenosis. No dissection or occlusion. Left external carotid artery: Unremarkable. No s tenosis. No dissection or occlusion of the origin. Left vertebral artery: Unremarkable. No stenosis . No dissection or occlusion. IMPRESSION: No hemodynamically significant stenosis. COMMENT: Reference per NASCET criteria for degree of sten osis: Mild: less than 50% stenosis. Moderate: 50-69% stenosis. Severe: 70- 94% stenosis. Near occlusion: 95-99% stenosis. Phillip Munoz MD On 08/04/2019 19:05:57; VR- [id number] Spine cervical wo PROCEDURE INFORMATION: 08/04/2019 PAR[facility] contrast MRI Exam: MR Cervical Spine Without Contrast Exam date and time: 08/04/2019 6:17 PM Age: 68 years old Clinical indication: Spinal stenosis, ce rvical region; Additional info: M48.02 spinal stenosis, cervical region/m48.02 spinal s tenosis, cervical region TECHNIQUE: Imaging protocol: Multiplanar magnetic resonance images of the cervical spine without contrast. COMPARISON: NECK WO CONTRAST MRA 08/04/2019 6:00 PM FINDINGS: Vertebrae: There is no fracture or subluxation o f the vertebrae. There is an underlying short pedicle configuration of the sp inal canal. Spinal cord: There is no myelomalacia or cord ed duran. There is no cerebellar tonsillar ectopia. C2-C3: No significant disc disease. No significa nt spinal stenosis. C3-C4: At the C3-C4 disc space, there is broaden ing of the posterior longitudinal ligament and a short pedicl e configuration of spinal canal. There is hypertrophic change of un covertebral joints with minimal bilateral foraminal stenosis and central canal stenosis. C4-C5: At the C4-C5 disc space, there is a 2 mm central protrusion and hypertrophic change to left uncovertebral joint with minimal to moderate spinal stenosis and severe left foraminal stenosis. C5-C6: At the C5-C6 disc space is a 2 mm bulging annulus and left lateral spondylosis. There is severe left foraminal sten osis with hypertrophic change of uncovertebral joint and minimal to moderate s janette stenosis. C6-C7: At the C6-C7 disc space is a 2 mm right lateral bridging osteophyte and hypertrophic change of uncovertebral joint and l igamentum flavum hypertrophy with moderate spinal stenosi s. There is minimal flattening of the right ventral cord. There is severe right foraminal stenosis. C7-T1: At the C7-T1 disc space is a 2 mm left la teral protrusion partially attenuating distal lateral recess and hypertroph ic change of uncovertebral joint with minimal to moderate left foraminal st enosis. Vertebral arteries: Expected flow voids in the v ertebral arteries. Soft tissues: The prevertbral soft tissues are n ormal. IMPRESSION: There is an underlying short pedicle configuration of spinal canal with multilevel discogenic disease as described. Madhav Sykes MD On 08/04/2019 19:44:43; CHRISTIAN [id number] Consultation Notes No Data Provided for This Section Discharge Summaries No Data Provided for This Section History and Physicals No Data Provided for This Section Vital Signs No Data Provided for This Section Encounters Location Location Encounter Encounter Reason Attending ADM NV Stat us Source Details Type Number For Provider Date Date Visit [facility] Refill [id number] Robert 03/18 [place] MANJINDER Partida MD /[facility] Diag [id number] Jason 08/04 08/05 [facility] [place] [facility] [place] Procedures No Data Provided for This Section Assessment and Plan No Data Provided for This Section Plan of Care Plan of Care Date Source INFLUENZA VACCINE (#1) 2019 [facility] Medicare Wellness Visit 10/11/2016 [facility] Health COLONOSCOPY 10/11/2001 [facility] Health DTaP,Tdap,and Td Vaccines (1 - 10/11/1970 [facility] Heal th Tdap) HEPATITIS C (HCV) SCREEN 1950 [facility] Social History Social History Date Source Social History TypeResponse 08/05/2019 [facility] [place] Tobacco UseTypesPacks/DayYears UsedDate 07/29/2018 [facility] Never Smoker Smokeless Tobacco: Never Used Alcohol UseDrinks/Weekoz/WeekComments Yes socially Sex Assigned at BirthDate Recorded Not on file Job Start DateOccupationIndustry Not on file Not on file Not on file Travel HistoryTravel StartTravel End No recent travel history available. documented as of this encounter Family History No Data Provided for This Section Advance Directives No Data Provided for This Section Functional Status No Data Provided for This Section
--- OUTSIDE RECORDS SUMMARY | 2019-12-14 17:48 | XMS REPORT ---
:1950 Author Organization [facility] t Address [address]. [address] [place] [address] Care Team Providers Name Role Phone Jaquan MCDONALD Attending Clinician Terry Zheng Attending Clinician Problems This patient has no known problems. Allergies, Adverse Reactions, Alerts This patient has no known allergies or adverse reactions. Medications This patient has no known medications. Procedures This patient has no known procedures. Encounters Start End Encounter Admission Attending Care Care Encounter Source Date/Time Date/Time Type Type Clinicians Facility Department ID 2019-11-13 2019-11-13 Refill Jaquan [facility] [id number] 00:00:00 00:00:00 [facility] [id number] [place] [id number] Professio [phone] nal 0[address] One 2019-10-25 2019-10-25 Refill Jaquan [facility] [id number] 00:00:00 00:00:00 [facility] [id number] [place] [id number] Professio [phone] nal 044 [address] One 2019-08-23 2019-08-23 Office Jaquan [facility] [id number] 09:46:15 10:01:15 Visit [facility] [id number] [place] [id number] Professio [phone] nal 044 [address] One 2019-08-04 2019-08-04 Outpatient JOSHUA Zheng [id number] [facility] 16:44:00 23:59:00 Jason 00 Outpat i Terry ent Imaging Corbin lewis 2019-03-18 2019-03-18 Foster Partida [facility] [id number] [facility] - 00:00:00 00:00:00 [facility] [id number] alyssa [place] [id number] Professio [phone] [place] [address] [address] Results This patient has no known results.
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
--- OUTSIDE RECORDS SUMMARY | 2019-12-14 17:50 | XMS REPORT | Summary of Care ---
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
--- OUTSIDE RECORDS SUMMARY | 2019-12-14 17:50 | XMS REPORT | Summary of Care ---
:1950 Author Organization [facility] - Health Address [address] [place] [address] Care Team Providers Name Role Phone Robert Partida MD Primary Care Provider Encounter Details Date Type Department Care Team Description 08/23/2019 Orders Only [facility] Doctor Unassigned, No [address] [facility] [address] [address] [place] [address] Allergies Active Allergy Reactions Severity Noted Date [...] tablet 0 03/18/2019 Active tablet MOUTH DAILY. LEVOTHYROXINE 75 mcg TAKE 1 TABLET BY 30 tablet 2 08/10/2019 Active tablet MOUTH EVERY MORNING HYDRALAZINE 50 mg TAKE 1 TABLET BY 270 tablet 0 08/17/2019 Active tabletIndications: MOUTH THREE Essential hypertension TIMES DAILY documented as of this encounter (statuses [...] Office Visit Family Medicine Robert Partida MD [address] [place], [place] [phone] Health Maintenance Due Date Last Done Comments HEPATITIS C (HCV) SCREEN 1950 DTaP,Tdap,and Td Vaccines (1 - Tdap) 10/11/1962 COLONOSCOPY 10/11/2001 Zoster Recombinant Vaccine (SHINGRIX) (1 of 2) 10/11/2001 Medicare Wellness Visit 10/11/2016 PNEUMOCOCCAL VACCINES 65+ (1 of 2 - PCV13) 10/11/2016 INFLUENZA VACCINE (#1) 2019 documented as of this encounter Procedures Procedure Name Priority Date/Time Associated Diagnosis Comme nts ASSIGNMENT OF BENEFITS Routine 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 ELIZABETH X Medicare & B ent [id number] [place] [phone] [facility] [id number] 2016-Pres I ndemnity [employer] ent documented as of this encounter
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
[2019-12-14] MEDS ORDERED: dexAMETHasone 10 MG/ML VIAL ONE (19:05)
[2019-12-14] MEDS ORDERED: KETOROLAC 30 MG/ML INJ ONE (19:05)
--- NOTE | 2019-12-14 19:14 | RAD REPORT ---
EXAM DESCRIPTION: CT - Head Brain Wo Cont - 12/14/2019 7:03 pm CLINICAL HISTORY: hypertension;Headache COMPARISON: Ct Stroke Brain Wo Cont dated 06/11/2019; Head Brain Wo Cont dated 01/26/2019 TECHNIQUE: All CT scans are performed using dose optimization technique as appropriate and may inclu de automated exposure control or mA/KV adjustment according to patient size. FINDINGS: No intracranial hemorrhage, hydrocephalus or extra-axial fluid collection.Mild generalized brain atrophy is present with mild periventricular and deep white matter chronic microvascular ische kosta changes.No areas of brain edema or evidence of midline shift. The paranasal sinuses and mastoids are clear. The calvarium is intact. IMPRESSION: No acute intracranial abnormality.
[2019-12-14 19:51] LABS: Protime INR 1.54
[2019-12-14 19:57] LABS: Absolute Lymphocytes (CBC) 1.7 K/uL (0.7-4.9); Basophils % 0.6 % (0-1.3); Hematocrit 47.2 % (39.6-49.0); Lymphocytes % 18.5 % (15.3-44.8); MPV 10.1 fL (7.6-11.3); RBC Red Blood Cell Count 4.95 M/uL (4.33-5.43)
[2019-12-14 20:05] LABS: ALT/SGPT 36 U/L (12-78); AST/SGOT 17 U/L (15-37); Albumin 3.8 g/dL (3.4-5.0); Alkaline Phosphatase 64 U/L (45-117); BUN Blood Urea Nitrogen 19 mg/dL (7-18); Bicarbonate 30 mmol/L (21-32); Bilirubin Direct 0.1 mg/dL (0-0.2); Bilirubin Total 0.5 mg/dL (0.2-1.0); Glucose Level 112 mg/dL (74-106); Magnesium 2.5 mg/dL (1.8-2.4); NT PRO-BNP 291 pg/mL (<125); Protein, Total 7.5 g/dL (6.4-8.2); Sodium Level 141 mmol/L (136-145); Troponin (Emerg Dept Use Only) < 0.02 ng/mL (0.0-0.045)
--- NOTE | 2019-12-14 21:06 | ER ---
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 Coronavirus screen: Patient denies a cough. Patient denies shortness of breath or difficulty breathing. Patient denies measured and/or subjective temperature greater than 100.4F prior to today's visit. Patient denies travel on a cruise ship or to a country the [facility] currently lists as an affected area. Patient denies contact with known and/or suspected case of COVID-19. Ebola Screen: No symptoms or risks identified at this time. Initial Sepsis Screen: Does the patient meet any 2 criteria? No. Patient's initial sepsis screen is negative. Does the patient have a suspected source of infection? No. Patient's initial sepsis screen is negative. Risk Assessment: Do you want to hurt yourself or someone else? Patient reports no desire to harm self or others. Onset of symptoms was December 14, 2019. 18:22 Method Of Arrival: Wheelchair ph 18:22 Acuity: INDIGO 3 ph Triage Assessment: 19:00 General: Appears in no apparent distress. Behavior is calm, cooperative. Historical: - Allergies: 18:28 Reglan; ph - PMHx: 18:28 Atrial Fib; CVA; High Cholesterol; Hypertension; Hypothyroidism; ph - PSHx: 18:28 None; ph Screenin:00 Abuse screen: Denies threats or abuse. Nutritional screening: No deficits noted. Tuberculosis screening: No symptoms or risk factors identified. Fall Risk None identified. Assessment: 18:40 General: Appears in no apparent distress. Behavior is calm, cooperative. Pain: Complains of pain in headache. 18:40 Neuro: Level of Consciousness is awake, alert, Oriented to person, place, time, ah situation, Reports dizziness, headache since starting new meds a few days ago. Cardiovascular: Heart tones S1 S2 present Capillary refill < 3 seconds Patient's skin is warm and dry. Pulses are palpable in right radial artery and left radial artery. Respiratory: Airway is patent Respiratory effort is even, unlabored, Respiratory pattern is regular, symmetrical, Breath sounds are clear bilaterally. GI: No signs and/or symptoms were reported involving the gastrointestinal system. : No signs and/or symptoms were reported regarding the genitourinary system. EENT: No signs and/or symptoms were reported regarding the EENT system. Derm: No signs and/or symptoms reported regarding the dermatologic system. Musculoskeletal: No signs and/or symptoms reported regarding the musculoskeletal system. 19:45 Reassessment: Pain medications given at this time. No other needs voiced at this time. ah 20:45 Reassessment: Patient and/or family updated on plan of care and expected duration. Pain ah level reassessed. Patient is alert, oriented x 3, equal unlabored respirations, skin warm/dry/pink. Pt tolerated medications well. No adverse reactions noted. Vital Signs: 18:22 BP 163 / 98; Pulse 57; Resp 18; Temp 98.2; Pulse Ox 98% on R/A; ph ED Course: 17:48 Patient arrived in ED. ag5 17:48 Ranjit Ornelas MD is Private Physician. ag5 18:27 Triage completed. ph 18:28 Arm band placed on Patient placed in an exam room. ph 18:37 [facility] cp 18:37 Matthew Agarwal MD is Attending Physician. cp 18:54 Isela Rodriguez, RN is Primary Nurse. ah 19:03 CT Head Brain wo Cont In Process Unspecified. EDMS 19:30 No provider procedures requiring assistance completed. ah 19:35 Huber Marx MD is Attending Physician. cp 19:45 Initial lab(s) drawn, by me, sent to lab. EKG done, by ED staff, reviewed by Javier MOSER. Inserted saline lock: 20 gauge in right antecubital area, using aseptic technique. Blood collected. Patient maintains SpO2 saturation greater than 95% on room air. 19:46 Placed in gown. Bed in low position. Call light in reach. Side rails up X 1. Warm jp3 blanket given. Verbal reassurance given. patient monitor on. Pulse ox on. NIBP on. 21:05 Ranjit Ornelas MD is Referral Physician. cp Administered Medications: 19:55 Drug: Decadron - Dexamethasone 10 mg Route: IVP; Site: right antecubital; 22:21 Follow up: Response: No adverse reaction 19:55 Drug: TORadol - Ketorolac 15 mg Route: IVP; Site: right antecubital; 22:21 Follow up: Response: No adverse reaction Outcome: 21:06 Discharge ordered by . cp 21:20 Discharged to home ambulatory. 21:20 Condition: good 21:20 Discharge instructions given to patient, Instructed on discharge instructions, follow up and referral plans. Demonstrated understanding of instructions, follow-up care. 21:48 Patient left the ED. mw2 Signatures: Dispatcher [employer] EDPatricia Bower RN RN ph Sabina, Javier, PA PA Lauren Decker mw2 César Carlson 3 Ruben Pennington 5 Isela Rodriguez RN RN
--- NOTE | 2019-12-14 21:06 | EDPHYS ---
Physician Documentation [facility] Name: Saw Wylie Age: 69 yrs Sex: Male : 1950 Arrival Date: 12/14/2019 Time: 17:48 Bed 13 Private MD: Ranjit Ornelas V ED Physician Huber Marx HPI: 12/13 18:55 This 69 yrs old Male presents to ER via Wheelchair with complaints of High cp Blood Pressure. 18:55 The patient has elevated blood pressure and discovered this at home, with a home device.cp 18:55 Onset: The symptoms/episode began/occurred gradually. Associated signs and symptoms: cp Pertinent positives: dizziness, headache, burning across chest, Pertinent negatives: chest pain, visual changes, vomiting, weakness. 18:55 Severity of symptoms: At its worst the blood pressure was 195 mm Hg. cp 18:55 Patient reports recently starting Paroxetine antidepressant last week with last dose cp night before last. Historical: - Allergies: 18:28 Reglan; ph - PMHx: 18:28 Atrial Fib; CVA; High Cholesterol; Hypertension; Hypothyroidism; ph - PSHx: 18:28 None; ph ROS: 19:05 Constitutional: Negative for body aches, chills, fever, poor PO intake. cp 19:05 Eyes: Negative for injury, pain, redness, and discharge. cp 19:05 ENT: Negative for ear pain, sore throat. 19:05 Cardiovascular: Negative for chest pain, edema, palpitations. 19:05 Respiratory: Negative for cough, shortness of breath, wheezing. 19:05 Abdomen/GI: Negative for abdominal pain, nausea, vomiting, and diarrhea. 19:05 Skin: Negative for rash. 19:05 Neuro: Positive for headache, Negative for altered mental status, dizziness, numbness, speech changes, syncope. 19:05 All other systems are negative. Exam: 19:08 Constitutional: The patient appears in no acute distress, alert, awake, cp non-diaphoretic, non-toxic, well developed, well nourished. 19:08 Head/Face: Normocephalic, atraumatic. cp 19:08 Eyes: Periorbital structures: appear normal, Pupils: equal, round, and reactive to light and accomodation, Extraocular movements: intact throughout, Sclera: no appreciated abnormality, Lids and lashes: appear normal, bilaterally. 19:08 ENT: External ear(s): are unremarkable, Nose: is normal, Mouth: Lips: moist, Oral mucosa: pink and intact, moist, Posterior pharynx: is normal, airway is patent, no erythema, no exudate. 19:08 Neck: ROM/movement: Meningeal signs: are not present, nuchal rigidity, is not appreciated. 19:08 Chest/axilla: Inspection: normal, Palpation: is normal, no crepitus, no tenderness. 19:08 Cardiovascular: Rate: bradycardic, Rhythm: regular, Edema: is not appreciated, JVD: is not appreciated. 19:08 Respiratory: the patient does not display signs of respiratory distress, Respirations: normal, no use of accessory muscles, no retractions, labored breathing, is not present, Breath sounds: are clear throughout, no decreased breath sounds, no stridor, no wheezing. 19:08 Abdomen/GI: Inspection: abdomen appears normal, Palpation: abdomen is soft and non-tender, in all quadrants. 19:08 Back: pain, is absent, ROM is normal. 19:08 Skin: no rash present. 19:08 Neuro: Orientation: to person, place \T\ time. Mentation: is normal, Cerebellar function: is grossly normal, Motor: moves all fours, strength is normal, Sensation: is normal. 19:51 ECG was reviewed by the Attending Physician. Vital Signs: 18:22 BP 163 / 98; Pulse 57; Resp 18; Temp 98.2; Pulse Ox 98% on R/A; ph MDM: 18:47 Patient medically screened. 21:05 Data reviewed: vital signs, nurses notes, lab test result(s), EKG, radiologic studies, cp plain films, and as a result, I will discharge patient. 21:05 Test interpretation: by ED physician or midlevel provider: ECG. 21:05 Counseling: I had a detailed discussion with the patient and/or guardian regarding: the cp historical points, exam findings, and any diagnostic results supporting the discharge/admit diagnosis, lab results, radiology results, the need for outpatient follow up, an pc support specialist, to return to the emergency department if symptoms worsen or persist or if there are any questions or concerns that arise at home. 21:05 Differential diagnosis: hypertensive crisis, Malignant HTN, CVA, intracerebral cp hemorrhage, medication reaction. Response to treatment: the patient's symptoms have markedly improved after treatment, and as a result, I will discharge patient. ED course: VSS. Headache and blood pressure improved. Will discharge to home for continued monitoring. 12/13 18:49 Order name: Basic Metabolic Panel; Complete Time: 20:34 cp / 20:34 Interpretation: Normal except: GLUC 112; BUN 19; GFR 64. cp 12/13 18:49 Order name: CBC with Diff; Complete Time: 20:34 cp 12/13 20:35 Interpretation: Normal except: PLT 145. cp 12/13 18:49 Order name: LFT's; Complete Time: 20:34 cp / 20:35 Interpretation: Normal except: GLOB 3.7; A/G 1.0. cp 12/13 18:49 Order name: Magnesium; Complete Time: 20:34 cp 12/13 18:49 Order name: NT PRO-BNP; Complete Time: 20:34 cp 12/13 18:49 Order name: PT-INR; Complete Time: 20:34 cp 12/13 18:49 Order name: CT Head Brain wo Cont; Complete Time: 19:22 cp / 19:22 Interpretation: Report reviewed. 12/13 18:49 Order name: Troponin (emerg Dept Use Only); Complete Time: 20:34 cp / 20:35 Interpretation: Within normal limits: TROPED < 0.02. cp 12/13 18:49 Order name: EKG; Complete Time: 18:49 cp 12/13 18:49 Order name: Cardiac monitoring; Complete Time: 19:34 cp 12/13 18:49 Order name: EKG - Nurse/Tech; Complete Time: 19:46 cp 12/13 18:49 Order name: IV Saline Lock; Complete Time: 19:34 cp 12/13 18:49 Order name: Labs collected and sent; Complete Time: 19:34 cp 12/13 18:49 Order name: O2 Per Protocol; Complete Time: 19:34 cp 12/13 18:49 Order name: O2 Sat Monitoring; Complete Time: 19:35 cp EC:51 Rate is 52 beats/min. Rhythm is regular. ME interval is normal. QRS interval is normal. cp QT interval is normal. T waves are Flattened in leads aVF, V5. Interpreted by me. Reviewed by me. Administered Medications: 19:55 Drug: Decadron - Dexamethasone 10 mg Route: IVP; Site: right antecubital; 22:21 Follow up: Response: No adverse reaction 19:55 Drug: TORadol - Ketorolac 15 mg Route: IVP; Site: right antecubital; 22:21 Follow up: Response: No adverse reaction Disposition: 12/14 07:00 Co-signature as Attending Physician, Huber Marx MD I agree with the assessment and [facility] plan of care. Disposition: 12/14/19 21:06 Discharged to Home. Impression: Headache, Hypertensive heart disease. - Condition is Stable. - Discharge Instructions: General Headache Without Cause, Hypertension, How to Take Your Blood Pressure, [id number], Managing Your Hypertension. - Medication Reconciliation Form, Thank You Letter, Antibiotic Education, Prescription Opioid Use form. - Follow up: Ranjit Ornelas MD; When: 1 - 2 days; Reason: Recheck today's complaints. - Problem is new. - Symptoms have improved. Signatures: Dispatcher [employer] EDPatricia Bower RN RN Sabina, Javier, PA PA Huber Marx MD MD [address] [place] [address] Isela Rodriguez RN RN Corrections: (The following items were deleted from the chart) 12/13 21:48 21:06 12/14/2019 21:06 Discharged to Home. Impression: Headache; Hypertensive heart mw2 disease. Condition is Stable. Forms are Medication Reconciliation Form, Thank You Letter, Antibiotic Education, Prescription Opioid Use. Follow up: Ranjit Ornelas; When: 1 - 2 days; Reason: Recheck today's complaints. Problem is new. Symptoms have improved. cp
[2019-12-14 22:37] VITALS: BP 163/98; TEMP 98.2; O2SAT 98
--- NOTE | 2019-12-16 06:32 | EKG ---
Test Date: 2019-12-14 Test Time: 19:43:50 Personal Care Attendant: GEOFFREY MEASUREMENT RESULTS: Intervals: Rate: 52 GA: 188 QRSD: 74 QT: 444 QTc: 412 Dorena: P: 8 GA: 188 QRS: -4 T: 5 INTERPRETIVE STATEMENTS: Sinus bradycardia Otherwise normal ECG Compared to ECG 06/11/2019 19:45:02 Sinus rhythm no longer present Electronically Signed On 12-16-19 06:30:24 CDT by Ajay Miller
== END 2019-12-14 21:48 | disposition home or self-care (01) ==
LOC: ER 17:46
DX: I11.9 Hypertensive heart disease without heart failure (principal); I10 Essential (primary) hypertension; Z88.8 Allergy status to other drugs, medicaments and biological substances
CPT/HCPCS: 93005; 85025; 80048; 36415; 83735; 85610; 80076; 84484; 83880; 70450; 96375; 96374; 99285; J1100

== ENCOUNTER 2021-02-23 15:13 | Emergency (ER) | payer OTHER ==
--- OUTSIDE RECORDS SUMMARY | 2021-02-23 15:18 | XMS REPORT | Continuity of Care Document ---
:1950 Author Organization [facility] t Address [address] [place] [address] Care Team Providers Name Role Phone Jaquan MCDONALD Attending Clinician Terry Zheng Attending Clinician Problems Condition Condition Condition Status Onset Resolution Last Treating Co mments Source Name Details Category Date Date Treatment Clinician Date M4.02 - Diagnosis Active 2019-09-09 M emoria SPINAL -02 13:11:00 l STENOSIS, M48.02 - 00:01: Her barbosa CERVICAL SPINAL 00 PRASANNA STENOSIS, CERVICAL PRASANNA Active 07/29/2019 ARNOL Singleton Allergies, Adverse Reactions, Alerts This patient has no known allergies or adverse reactions. Medications This patient has no known medications. Procedures This patient has no known procedures. Encounters Start End Encounter Admission Attending Care Care Encounter Source Date/Time Date/Time Type Type Clinicians Facility Department ID 2020-10-17 2020-10-17 Foster Partida [facility] [id number] 00:00:00 00:00:00 [facility] [id number] [place] [id number] Professio [phone] [place] [address] 2020-09-15 2020-09-15 Foster Partida [facility] [id number] 00:00:00 00:00:00 [facility] [id number] [place] [id number] Professio [phone] n[place] [address] 2020-09-15 2020-09-15 Foster Partida, [facility] [id number] 00:00:00 00:00:00 [facility] [id number] [place] [id number] Professio [phone] [place] [address] [address] 2020-08-15 2020-08-15 Foster Partida, [facility] [id number] 00:00:00 00:00:00 [facility] [id number] [place] [id number] Professio [phone] [place] [address] [address] 2020-08-15 2020-08-15 Foster Partida, [facility] [id number] 00:00:00 00:00:00 [facility] [id number] [place] [id number] Professio [phone] [place] [address] [address] 2020-08-03 2020-08-03 Refjaclyn Partida, [facility] [id number] 00:00:00 00:00:00 [facility] [id number] [place] [id number] Professio [phone] [place] [address] [address] 2020-08-03 2020-08-03 Foster Partida, [facility] [id number] 00:00:00 00:00:00 [facility] [id number] [place] [id number] Professio [phone] [place] [address] [address] 2020-03-03 2020-03-03 Foster Partida, [facility] [id number] 00:00:00 00:00:00 [facility] [id number] [place] [id number] Professio [phone] [place] [address] [address] 2020-01-19 2020-01-19 Foster Partida, [facility] [id number] 00:00:00 00:00:00 [facility] [id number] [place] [id number] Professio [phone] nal [facility] [address] 2019-11-13 2019[facility]11-[facility] [id number] 00:00:00 00:00:00 [facility] [id number] [place] [id number] Professio [phone] [place] [address] [address] 2019-10-25 2019-10-25 [facility] [id number] 00:00:00 00:00:00 [facility] [id number] [place] [id number] Professio [phone] [place] [address] [address] 2019-08-23 2019-08-23 Office Jaquan [facility] [id number] 09:46:15 10:01:15 Visit [facility] [id number] [place] [id number] Professio [phone] [place] [address] [address] 2019-08-04 2019-08-04 Outpatient Small, MHOIP MHOIP [id number] 16:44:00 23:59:00 [place] [address] Terry Results This patient has no known results.
[2021-02-23 17:39] LABS: Basophils % 0.6 % (0-1.3); Hematocrit 46.7 % (39.6-49.0); Lymphocytes % 13.8 % (15.3-44.8); MPV 10.3 fL (7.6-11.3); RBC Red Blood Cell Count 4.93 M/uL (4.33-5.43)
[2021-02-23 17:42] LABS: Protime INR 1.31
[2021-02-23 17:57] LABS: ALT/SGPT 63 U/L (12-78); AST/SGOT 38 U/L (15-37); Alkaline Phosphatase 69 U/L (45-117); BUN Blood Urea Nitrogen 25 mg/dL (7-18); Bicarbonate 30 mmol/L (21-32); Bilirubin Direct 0.2 mg/dL (0-0.2); Bilirubin Total 0.5 mg/dL (0.2-1.0); Glucose Level 142 mg/dL (74-106); Magnesium 2.2 mg/dL (1.8-2.4); NT PRO-BNP 44 pg/mL (<125); Potassium 4.6 mmol/L (3.5-5.1); Protein, Total 8.3 g/dL (6.4-8.2); Sodium Level 133 mmol/L (136-145); Troponin (Emerg Dept Use Only) < 0.02 ng/mL (0.0-0.045)
--- NOTE | 2021-02-23 18:18 | RAD REPORT ---
EXAM DESCRIPTION: RAD - Chest Single View - 02/23/2021 5:43 pm CLINICAL HISTORY: COUGH COMPARISON: May 2019 TECHNIQUE: AP portable chest image was obtained 02/23/2021 5:43 pm . FINDINGS: Lungs are clear. Heart and vasculature are normal. No measurable pleural effusion and no p neumothorax. No acute bony abnormality seen. No acute aortic findings suspected. IMPRESSION: No acute cardiopulmonary process. No significant change from comparison study.
--- NOTE | 2021-02-23 18:44 | ER ---
Nurse's Notes [facility] Name: Saw Wylie Age: 70 yrs Sex: Male : 1950 Arrival Date: 02/23/2021 Time: 15:16 Bed 24 Private MD: Diagnosis: SARS-associated coronavirus as the cause of diseases classified elsewhere Presentation: 02/23 15:48 Chief complaint: Patient states: started feeling bad about 4 or 5 days ago. i have a tw2 cough and congestion. cant smell my vicks and cant taste well. my sisters ganged up on me \T\ told me to come here because i havent gotten any better. Coronavirus screen: congestion, cough unrelated to allergies, fatigue, fever, headache, muscle pain, runny nose, sore throat, loss of taste or smell, Client presents with at least one sign or symptom that may indicate coronavirus-19. Standard/surgical mask placed on the client. Provider contacted for isolation considerations. Ebola Screen: Patient denies travel to an Ebola-affected area in the 21 days before illness onset. Initial Sepsis Screen: Does the patient meet any 2 criteria? No. Patient's initial sepsis screen is negative. Does the patient have a suspected source of infection? No. Patient's initial sepsis screen is negative. Risk Assessment: Do you want to hurt yourself or someone else? Patient reports no desire to harm self or others. Onset of symptoms was February 23, 2021. 15:48 Acuity: INDIGO 3 tw2 15:48 Method Of Arrival: Wheelchair tw2 Triage Assessment: 15:48 General: Appears in no apparent distress. ill, pt not able to walk steady on his feet tw2 when name was called. Behavior is calm, cooperative, appropriate for age. Pain: Complains of pain in back, uvula, left aspect of posterior pharynx and right aspect of posterior pharynx. Musculoskeletal: Range of motion: intact in all extremities. Historical: - Allergies: 15:45 Reglan; tw2 - Home Meds: 15:45 Xarelto 20 mg Oral tab 1 tab once daily [Active]; rosuvastatin 5 mg Oral tab 1 tab once tw2 daily [Active]; hydrochlorothiazide 12.5 mg Oral tab as needed [Active]; Spironolactone Oral [Active]; aspirin 81 mg Oral TbEC 1 tab once daily [Active]; levothyroxine 75 mcg tab 1 tab once daily for hypothyroidism [Active]; sotalol 80 mg Oral tab 0.5 tab 2 times per day [Active]; - PMHx: 15:45 Atrial Fib; High Cholesterol; Hypertension; Hypothyroidism; CVA; tw2 - Immunization history:: Client reports having NOT received the Covid vaccine. - Social history:: Smoking status: Patient denies any tobacco usage or history of. Screenin:34 Abuse screen: Denies threats or abuse. Nutritional screening: No deficits noted. tw2 Tuberculosis screening: No symptoms or risk factors identified. Fall Risk Secondary diagnosis (15 points) impaired mobility. Assessment: 17:40 General: Appears in no apparent distress. comfortable, Behavior is calm, cooperative, ap3 appropriate for age, Reports feeling ill for 2-3 days. Pain: Complains of pain in low back area. Neuro: Level of Consciousness is awake, alert, obeys commands, Oriented to person, place, time, situation, Appropriate for age Moves all extremities. Gait is steady, Speech is normal. Cardiovascular: Denies chest pain, Capillary refill < 3 seconds Patient's skin is warm and dry. Respiratory: Airway is patent Respiratory effort is even, unlabored, Respiratory pattern is regular, symmetrical. Respiratory: Parent/caregiver reports the patient having cough that is dry, but patient states that the cough has since cleared. GI: No signs and/or symptoms were reported involving the gastrointestinal system. : No signs and/or symptoms were reported regarding the genitourinary system. EENT: No signs and/or symptoms were reported regarding the EENT system. Derm: No signs and/or symptoms reported regarding the dermatologic system. Vital Signs: 15:48 BP 140 / 95; Pulse 115; Resp 18; Temp 100.3(TE); Pulse Ox 97% on R/A; Weight 82.55 kg tw2 (R); Height 5 ft. 5 in. (165.10 cm); 17:56 BP 140 / 96; Pulse 91; Resp 12; Pulse Ox 96% on R/A; ap3 18:43 BP 138 / 89; Pulse 90; Pulse Ox 100% on R/A; ap3 15:48 Body Mass Index 30.29 (82.55 kg, 165.10 cm) tw2 ED Course: 15:16 Patient arrived in ED. mr 15:49 Triage completed. tw2 15:50 Arm band placed on. tw2 16:48 Javier Muhammad PA is PHCP. cp 16:48 Javier Cotter MD is Attending Physician. cp 17:04 Naz Griffin, RN is Primary Nurse. ap3 17:20 EKG done, by ED staff, reviewed by Javier MOSER. dh3 17:25 Initial lab(s) drawn, by dc, sent to lab. Inserted saline lock: 20 gauge in right 3 antecubital area, using aseptic technique. Blood collected. 17:40 Patient has correct armband on for positive identification. Bed in low position. Call ap3 light in reach. Side rails up X2. Pulse ox on. NIBP on. Door closed. Noise minimized. 17:44 XRAY Chest (1 view) In Process Unspecified. EDMS 18:59 No provider procedures requiring assistance completed. IV discontinued, intact, ap3 bleeding controlled, No redness/swelling at site. Pressure dressing applied. Administered Medications: No medications were administered Outcome: 18:44 Discharge ordered by MD. cp 18:59 Discharged to home ambulatory. ap3 18:59 Condition: good 18:59 Discharge instructions given to patient, Instructed on discharge instructions, follow up and referral plans. medication usage, Demonstrated understanding of instructions, follow-up care, medications, Prescriptions given X 4. 19:00 Patient left the ED. ap3 Signatures: Dispatcher [employer] EDTN Umu Jose mr Javier Muhammad PA PA cp Ria Peraza RN RN 2 Ansley Powell 3 Naz Griffin, KANA RN ap3 Corrections: (The following items were deleted from the chart) 16:34 15:48 Method Of Arrival: Ambulatory tw2 tw2
--- NOTE | 2021-02-23 18:44 | EDPHYS ---
Physician Documentation [facility] Name: Saw Wylie Age: 70 yrs Sex: Male : 1950 Arrival Date: 02/23/2021 Time: 15:16 Bed 24 Private MD: ED Physician Javier Cotter HPI: 02/23 17:05 This 70 yrs old Male presents to ER via Wheelchair with complaints of Cough, cp Back Pain, No smell or taste, Fever. 17:05 The patient or guardian reports cough, that is intermittent, with no sputum. cp 17:05 Onset: The symptoms/episode began/occurred 5 day(s) ago. cp 17:05 Severity of symptoms: in the emergency department the symptoms are unchanged, despite home interventions. Associated signs and symptoms: Pertinent positives: fever, loss of taste and smell, mid back pain. Historical: - Allergies: 15:45 Reglan; tw2 - Home Meds: 15:45 Xarelto 20 mg Oral tab 1 tab once daily [Active]; rosuvastatin 5 mg Oral tab 1 tab once tw2 daily [Active]; hydrochlorothiazide 12.5 mg Oral tab as needed [Active]; Spironolactone Oral [Active]; aspirin 81 mg Oral TbEC 1 tab once daily [Active]; levothyroxine 75 mcg tab 1 tab once daily for hypothyroidism [Active]; sotalol 80 mg Oral tab 0.5 tab 2 times per day [Active]; - PMHx: 15:45 Atrial Fib; High Cholesterol; Hypertension; Hypothyroidism; CVA; tw2 - Immunization history:: Client reports having NOT received the Covid vaccine. - Social history:: Smoking status: Patient denies any tobacco usage or history of. ROS: 17:10 Constitutional: Positive for body aches, fever, Negative for chills, poor PO intake. cp 17:10 Cardiovascular: Negative for chest pain, edema, palpitations. 17:10 Eyes: Negative for injury, pain, redness, and discharge. cp 17:10 ENT: Negative for drainage from ear(s), ear pain, sore throat, difficulty swallowing, difficulty handling secretions. 17:10 Neck: Negative for stiffness. 17:10 Respiratory: Positive for cough, "sounds productive", Negative for shortness of breath, wheezing. 17:10 Abdomen/GI: Negative for abdominal pain, nausea, vomiting, and diarrhea, constipation, black/tarry stool, rectal bleeding. 17:10 Back: Positive for pain at rest, pain with movement. 17:10 : Negative for urinary symptoms. 17:10 Neuro: Negative for altered mental status, headache, syncope, weakness. 17:10 All other systems are negative. Exam: 17:15 Constitutional: The patient appears in no acute distress, alert, awake, cp non-diaphoretic, non-toxic, well developed, well nourished. 17:15 Head/Face: Normocephalic, atraumatic. cp 17:15 Eyes: Periorbital structures: appear normal, Conjunctiva: normal, no exudate, no injection, Sclera: no appreciated abnormality, Lids and lashes: appear normal, bilaterally. 17:15 ENT: External ear(s): are unremarkable, Ear canal(s): are normal, clear, TM's: dullness, bilaterally, Nose: is normal, Mouth: is normal, Posterior pharynx: Airway: no evidence of obstruction, patent. 17:15 Neck: ROM/movement: is normal, is supple, without pain, no range of motions limitations, no meningismus. 17:15 Chest/axilla: Inspection: normal, Palpation: is normal, no crepitus, no tenderness. 17:15 Cardiovascular: Rate: tachycardic, Rhythm: regular, Edema: is not appreciated, JVD: is not appreciated. 17:15 Respiratory: the patient does not display signs of respiratory distress, Respirations: normal, no use of accessory muscles, no retractions, labored breathing, is not present, Breath sounds: bronchial sounds, that are mild, are heard diffusely, decreased breath sounds, are not appreciated, stridor, is not appreciated, wheezing: is not appreciated. 17:15 Abdomen/GI: Inspection: abdomen appears normal, Bowel sounds: active, all quadrants, Palpation: abdomen is soft and non-tender, in all quadrants. 17:15 Back: pain, that is mild, of the mid back area, ROM is normal. 17:15 Skin: no rash present. 17:15 Neuro: Orientation: to person, place \\T\\ time. Mentation: is normal, Cerebellar function: is grossly normal, Motor: moves all fours, strength is normal, Sensation: is normal. 17:23 ECG was reviewed by the Attending Physician. Vital Signs: 15:48 BP 140 / 95; Pulse 115; Resp 18; Temp 100.3(TE); Pulse Ox 97% on R/A; Weight 82.55 kg tw2 (R); Height 5 ft. 5 in. (165.10 cm); 17:56 BP 140 / 96; Pulse 91; Resp 12; Pulse Ox 96% on R/A; ap3 18:43 BP 138 / 89; Pulse 90; Pulse Ox 100% on R/A; ap3 15:48 Body Mass Index 30.29 (82.55 kg, 165.10 cm) tw2 MDM: 16:54 Patient medically screened. [facility] 18:44 Data reviewed: vital signs, nurses notes, lab test result(s), EKG, radiologic studies, cp plain films. 18:44 Differential Diagnosis: Bronchitis Influenza Viral Syndrome Pneumonia Other pulmonary cp edema, less likely pulmonary embolism. Test interpretation: by ED physician or midlevel provider: ECG, plain radiologic studies. Counseling: I had a detailed discussion with the patient and/or guardian regarding: the historical points, exam findings, and any diagnostic results supporting the discharge/admit diagnosis, lab results, radiology results, to return to the emergency department if symptoms worsen or persist or if there are any questions or concerns that arise at home. Response to treatment: the patient's symptoms have mildly improved after treatment, and as a result, I will discharge patient. ED course: VSS. Patient appears non-toxic and no signs of respiratory distress. Will discharge to home for continued monitoring. 02/23 16:58 Order name: Basic Metabolic Panel; Complete Time: 18:22 02/23 18:22 Interpretation: Normal except: NA 133; CL 97; GLUC 142; BUN 25; CRE 1.58; GFR 44. 02/23 16:58 Order name: CBC with Diff; Complete Time: 18:22 02/23 18:22 Interpretation: Normal except: PLT 119; FLORENTINO% 74.0; LYM% 13.8. 02/23 16:58 Order name: LFT's; Complete Time: 18:22 02/23 18:23 Interpretation: Normal except: AST 38; TP 8.3; GLOB 4.3; A/G 0.9. 02/23 16:58 Order name: Magnesium; Complete Time: 18:22 02/23 16:58 Order name: NT PRO-BNP; Complete Time: 18:22 02/23 18:23 Interpretation: Within normal limits: NT PRO-BNP 44. 02/23 16:58 Order name: PT-INR; Complete Time: 18:22 02/23 18:23 Interpretation: Abnormal: PT 15.1. 02/23 16:58 Order name: Troponin (emerg Dept Use Only); Complete Time: 18:22 02/23 18:23 Interpretation: Within normal limits: TROPED < 0.02. 02/23 16:58 Order name: XRAY Chest (1 view); Complete Time: 18:22 02/23 18:23 Interpretation: Report reviewed. 02/23 16:58 Order name: EKG; Complete Time: 16:58 02/23 16:58 Order name: Cardiac monitoring; Complete Time: 17:29 02/23 17:00 Order name: Influenza Screen (a \\T\\ B); Complete Time: 18:24 02/23 18:24 Interpretation: Reviewed. 02/23 18:34 Order name: SARS-COV-2 RT PCR; Complete Time: 18:34 EDMS 02/23 18:34 Interpretation: Results reviewed. 02/23 16:58 Order name: EKG - Nurse/Tech; Complete Time: 17:29 02/23 16:58 Order name: IV Saline Lock; Complete Time: 17:29 02/23 16:58 Order name: Labs collected and sent; Complete Time: 17:29 02/23 16:58 Order name: O2 Per Protocol; Complete Time: 17:30 02/23 16:58 Order name: O2 Sat Monitoring; Complete Time: 17:30 EC:23 Rate is 93 beats/min. Rhythm is regular. MT interval is normal. QRS interval is normal. cp QT interval is normal. Interpreted by me. Reviewed by me. Administered Medications: No medications were administered Disposition Summary: 02/23/21 18:44 Discharge Ordered Location: Home cp Problem: new cp Symptoms: are unchanged cp Condition: Stable cp Diagnosis - SARS-associated coronavirus as the cause of diseases classified elsewhere cp Followup: cp - With: Private Physician - When: 2 - 3 days - Reason: Worsening of condition Discharge Instructions: - Discharge Summary Sheet cp - COVID-19 cp - 10 Things You Can Do to Manage Your COVID-19 Symptoms at Home - [facility] cp - Viral Illness, Adult cp Forms: - Medication Reconciliation Form cp - Thank You Letter cp - Antibiotic Education cp - Prescription Opioid Use cp Prescriptions: - ivermectin 3 mg Oral tablet - take 5 tablet by ORAL route every other day; 10 tablet; Refills: 0, Product cp Selection Permitted - Tessalon Perles 100 mg Oral Capsule - take 2 capsule by ORAL route every 8 hours As needed; 20 capsule; Refills: 0, cp Product Selection Permitted - Zithromax Z-Tucker 250 mg Oral Tablet - take 1 tablet by ORAL route as directed for 5 days Day 1 - take two (2) tablets cp one time. Day 2, 3, 4 , 5 take one (1) tablet once daily.; 6 tablet; Refills: 0, Product Selection Permitted - Prednisone 20 mg Oral Tablet - take 2 tablets by ORAL route once daily for 5 days then take 1 tablet daily for cp 5 days; 15 tablet; Refills: 0, Product Selection Permitted Addendum: 02/26/2021 06:48 Co-signature as Attending Physician, Javier Cotter MD I agree with the assessment and c rosas plan of care. Signatures: Dispatcher [employer] [facility] Javier Cotter MD MD cha Page, Corey, PA PA Ria Jiang, RN RN tw2 Corrections: (The following items were deleted from the chart) 02/23 17:55 17:32 CORONAVIRUS+MR.LAB.BRZ ordered. [facility] 02/24 15:16 15:14 Constitutional: Positive for body aches, fever, Negative for chills, poor PO cp intake, cp 15:16 15:14 Cardiovascular: Negative for chest pain, edema, palpitations, cp cp
[2021-02-23 19:10] VITALS: TEMP 100.3
[2021-02-23 19:13] VITALS: BP 138/89; O2SAT 100
== END 2021-02-23 19:00 | disposition home or self-care (01) ==
LOC: ER 15:13
DX: U07.1 COVID-19 (principal); I48.91 Unspecified atrial fibrillation; E78.00 Pure hypercholesterolemia, unspecified; I10 Essential (primary) hypertension; E03.9 Hypothyroidism, unspecified; Z86.73 Personal history of transient ischemic attack (TIA), and cerebral infarction without residual deficits
CPT/HCPCS: 93005; 85025; 80048; 36415; 83735; 85610; 80076; 84484; 83880; 87804 ×2; 71045; 99284; U0003